=== PATIENT | female | born 1965 | race Caucasian/White ===

== ENCOUNTER → 2016-12-27 | Outpatient (CLI) | payer BC ==
[~2016-12-27] MED LIST: ACYC800T PO; ALBU8.5H3 INH; BACL10TA PO; BUPR75TA9 PO; CETI10CA PO; DOCU-144 PO; FLUN8.9H INH; FLUT16SP17 NASAL; GABA300C16 PO; MELO-110 PO; MONT10TA21 PO; SERT-165 PO; SYN15 PO; TRAM-40 PO
--- NOTE | 2016-12-28 10:26 | RADRPT ---
Echocardiogram Report Patient Name: JHON MAGAÑA Gender: Female Date: 1965 Study Date: 27-Dec-2016 Contact Worker Lithography: [facility] [place] Location: EKG Ref. Physician: ANGELA PERDUE Quality: Adequate Procedures: Transthoracic echocardiogram with complete 2D, M-Mode, and doppler examination. Indications: Evaluate Left Ventricular function. 2D/M Mode Doppler Measurement Value Normal Ranges Measurement Value Normal Ranges LVIDd 2D 5.0 3.5 - 5.6 cm AV Peak Eddie 1.5 m/sec LVIDs 2D 3.5 2.1 - 4.1 cm AV Peak PG 9.3 mmHg LVPWd 2D 1.0 0.6 - 1.1 cm LVOT Peak Eddie 1.0 m/sec IVSd 2D 0.9 0.6 - 1.1 cm LVOT Peak PG 4.0 mmHg AoR Diam 2D 2.9 2.0 - 3.7 cm MV E Peak Eddie 0.7 m/sec EDV 2D 115.6 cm3 MV A Peak Eddie 0.8 m/sec ESV 2D 43.0 cm3 MV E/A 0.9 LA Dimen 2D 3.9 2.3 - 4.0 cm MV Decel Time 164 msec MV Decel [place] 4 MV E/A 0.9 Findings Left Ventricle: Normal left ventricular systolic function. Normal left ventricular cavity size. Normal left ventricular wall thickness. Ejection fraction is visually estimated at 60 %. Abnormal Diastolic Function. Right Ventricle: Normal right ventricular size. Normal right ventricular systolic function. Left Atrium: The left atrium is normal in size. Right Atrium: The right atrium is normal in size. Mitral Valve: Mitral valve leaflets appear mildly thickened. Trace mitral regurgitation. Aortic Valve: Normal appearance of the aortic valve. No significant aortic stenosis or insufficiency. Tricuspid Valve: Tricuspid valve not well visualized. There is trace tricuspid regurgitation. Pulmonic Valve: Pulmonic valve not well visualized. There is trace pulmonic regurgitation. Pericardium: Normal pericardium with no significant pericardial effusion. Aorta: Normal aortic root. IVC: Normal size and normal respiratory collapse consistent with normal right atrial pressure. Conclusions 1.Normal left ventricular systolic function. Normal left ventricular cavity size. Normal left ventricular wall thickness. Ejection fraction is visually estimated at 60 %. Abnormal Diastolic Function. 2.Mitral valve leaflets appear mildly thickened. Trace mitral regurgitation. 3.Normal appearance of the aortic valve. No significant aortic stenosis or insufficiency. 4.Tricuspid valve not well visualized. There is trace tricuspid regurgitation. Electronically Signed By: Saul Valdovinos 28-Dec-2016 10:26:10 -0700 Patient Name: JHON MAGAÑA Study Date: 27-Dec-2016 [id number]
== END | disposition home or self-care (01) ==
LOC: EKG 13:00
PROVIDERS: ATTEND Case Manager/Care Coordinator
DX: C50.919 Malignant neoplasm of unspecified site of unspecified female breast (principal)
CPT/HCPCS: 93306

== ENCOUNTER 2017-01-02 07:39 | Day surgery (SDC) | payer BC ==
[2017-01-02] VITALS (18 sets, daily range): BP systolic 109–164; BP diastolic 57–84; PULSE 49–67; RESP 16–19; Ht 170.2 cm; Wt 118.3 kg
[~2017-01-02] VITALS: Ht 170.2 cm; Wt 118.3 kg
[2017-01-02] MEDS ORDERED: CEFAZOLIN 1 GM/50 ML (PMX) 50 ML IVPB ONE (08:30)
[2017-01-02] MEDS ORDERED: POLYMYXIN/BACITRACIN 1L IRRIG IRR ONE (08:30)
[2017-01-02] MEDS ORDERED: SOD CHLORIDE 0.9% 1,000 ML IV SCH (08:30)
[2017-01-02] MEDS ORDERED: BACL10TA PO (08:56)
[2017-01-02] MEDS ORDERED: MELO-110 PO (08:57)
[2017-01-02] MEDS ORDERED: BUPR75TA9 PO (08:57)
[2017-01-02] MEDS ORDERED: GABA300C16 PO (08:58)
[2017-01-02] MEDS ORDERED: TRAM-40 PO (08:58)
[2017-01-02] MEDS ORDERED: FLUN8.9H INH (08:59)
[2017-01-02] MEDS ORDERED: SERT-165 PO (08:59)
[2017-01-02] MEDS ORDERED: FLUT16SP17 NASAL (09:00)
[2017-01-02] MEDS ORDERED: ACYC800T PO (09:00)
[2017-01-02] MEDS ORDERED: SYN15 PO (09:00)
[2017-01-02] MEDS ORDERED: ALBU8.5H3 INH (09:01)
[2017-01-02] MEDS ORDERED: CETI10CA PO (09:01)
[2017-01-02] MEDS ORDERED: MONT10TA21 PO (09:01)
[2017-01-02] MEDS ORDERED: DOCU-144 PO (09:02)
[2017-01-02] MEDS ORDERED: MIDAZOLAM 1 MG/ML 2 ML INJ ONE (09:22)
[2017-01-02] MEDS ORDERED: FENTAnyl 50 MCG/ML VIAL ONE (09:22)
[2017-01-02] MEDS ORDERED: LIDOCAINE 2%/EPI 30 ML INJ ONE (09:22)
[2017-01-02] MEDS ORDERED: HEPARIN 1000 UNITS/ML 10 ML INJ ONE (09:23)
[2017-01-02] MEDS ORDERED: SOD CHLORIDE 0.9% 500 ML ONE (09:23)
--- NOTE | 2017-01-02 10:52 | RADRPT ---
PROCEDURE: Ultrasound guidance for placement of needle in right internal jugular vein. CLINICAL INDICATION: Venous access. TECHNIQUE: Prior to the procedure, informed consent was obtained. Risks including bleeding, infection, and pneu mothorax were explained to the patient. The patient understood and was willing to proceed. A procedu ral pause was performed. The patient's name, date of , and procedure to be performed were verif ied. The central line was inserted with all elements of maximal sterile barrier technique. All of th e following were used: head covering, facial mask, sterile gown, sterile gloves, a large sterile she et, hand hygiene, and 2% chlorhexidine for cutaneous antisepsis. The right neck and anterior/super ior chest wall was prepped and draped in usual sterile fashion. Limited sonography of the right neck was then performed. Noted is a patent right internal jugular ve in. Ultrasound images were recorded and stored in the patient's medical record. Following the local injection of Xylocaine, the right internal jugular vein was punctured under sono graphic guidance with a 20-gauge needle through which a 0.018 inch floppy tip guidewire was advanced into the superior vena cava. The patient tolerated the procedure well. The remainder of the proce dure was performed and dictated under separate cover. COMPARISON: None. FINDINGS: The ultrasound images demonstrate a patent right internal jugular vein. The subsequent images demon strate the needle entering the right internal jugular vein. IMPRESSION: 1. Ultrasound guidance for a needle placement in right internal jugular vein. RPTAT: QQ .Micky Calvillo MD, Date Time Electronically viewed and signed by .Micky Calvillo MD, MD on 01/02/2017 10:52 .R/
--- NOTE | 2017-01-02 10:54 | RADRPT ---
PROCEDURE: FLUOROSCOPIC AND ULTRASONOGRAPHIC-GUIDED PLACEMENT OF RIGHT CHEST PORT. CLINICAL INDICATION: History of left breast cancer. Venous access for chemotherapy. TECHNIQUE: INTRAPROCEDURE MEDICATIONS: PB antibiotic solution 40 cc applied topically. 1 gram Ancef intravenous ly, intra-op. IV Versed and Fentanyl per protocol. Informed consent was obtained. The procedure, risks, benefits, complications and alternatives were explained to the patient. Risks including bleeding, infection, and pneumothorax were explained. The patient understood and was willing to proceed. A procedural pause was performed. The patient's name, date of , and procedure to be performed w ere verified. The central line was inserted with all elements of maximal sterile barrier technique. All of the fol lowing were used: head covering, facial mask, sterile gown, sterile gloves, a large sterile sheet, h and hygiene, and 2% chlorhexidine for cutaneous antisepsis. The right neck and anterior/superior chest wall were prepped and draped in usual sterile fashion. Limited sonography of the right neck was then performed. Noted is a patent right internal jugular ve in. Following the local injection of 1% lidocaine, the right internal jugular vein was punctured under s onographic guidance with a 20-gauge needle through which a 0.018 inch floppy tip guidewire was advan bijan into the superior vena cava with fluoroscopic guidance. The tract was dilated to 5 Georgian and the wire was then replaced with a 0.035 in Amplatz guidewire. Serial dilatation was then performed and a 8 Georgian peel away sheath was introduced. A site just inferior to the clavicle in the superior anterior right chest wall was localized. One pe rcent lidocaine was used as local anesthesia. A transverse 2.5 cm incision was made utilizing a 15 b lade scalpel. Utilizing blunt dissection a subcutaneous pocket was created inferior to the incision. The cavity was flushed with approximately 40 cc of PB antibiotic solution. The catheter was tunneled underneath the skin from the newly created pocket to the puncture site in the neck. The central line catheter was pulled through the tract. The catheter was then advanced thr ough the sheath until the tip was positioned in the right atrium. The peel-away sheath was removed. The catheter was flushed and clamped. The 8 Georgian catheter was then connected to the Angiodynamics power port. The port was then placed i nto the pocket. Prior to closing the instrument and sponge count was verified and was correct. The s ubcutaneous tissue was closed with 3-0 Vicryl interrupted suture. The skin at the site of the pocket and in the neck was closed with 4-0 Vicryl suture in a running subcuticular technique. The port was flushed with 2000 units of heparin in 2 ml utilizing a Salazar needle. The needle was removed. A dres sing was applied. The patient tolerated procedure well. COMPARISON: None. FINDINGS: Ultrasound images were recorded and stored in the patient's medical record. Final radiographic images demonstrate the tip of the catheter in the upper right atrium. A total of 0.2 minutes of fluoroscopy time was used. The ultrasound images demonstrate the needle entering th e internal jugular vein. IMPRESSION: 1. Successful ultrasonographic and fluoroscopic guided placement of right chest power port. RPTAT: QQ .Micky Calvillo MD, Date Time Electronically viewed and signed by .Micky Calvillo MD, on 01/02/2017 10:53 .R/
[2017-01-02] MEDS ORDERED: HYDROCODONE/APAP (5/325) TAB PO PRN (11:00)
== END 2017-01-02 12:48 | disposition home or self-care (01) ==
LOC: SDS 07:39
PROVIDERS: ATTEND Internal Medicine Hematology & Oncology
DX: C50.912 Malignant neoplasm of unspecified site of left female breast (principal)
CPT/HCPCS: 36561; 76942; C1788; J1644; J2250; J3010; J7040; Z7610

== ENCOUNTER 2017-02-16 14:35 | Inpatient (IN) | payer BC ==
[~2017-02-16] VITALS: Ht 170.2 cm; Wt 119.9 kg
[2017-02-16] MEDS ORDERED: SODIUM CHLORIDE 0.9% 1L BAG IV* STA (14:59)
[2017-02-16] MEDS ORDERED: VANCOMYCIN 1 GM (PMX) 250 ML IVPB ONE (15:00)
[2017-02-16] MEDS: CEFEPIME 2GM/50 ML (PMX) 50 ML IVPB STA ×2 (15:19→15:35)
--- NOTE | 2017-02-16 15:20 | ERA ---
ER Documentation Chief Complaint Date/Time DATE: 02/16/17 TIME: 15:17 Chief Complaint PT HERE WITH REDNESS ON RIGHT SUBCLAVIAN PORT-A-CATH, SENT PER PMD HPI Extremely pleasant 51-year-old female history of breast cancer on chemotherapy with recent neutropenia Neupogen who presents for an infected Port-A-Cath to the right chest. She has been given Keflex as an outpatient with only mild improvement. Her surgeon Dr. Olivarez, sent the patient to the emergency room for inpatient hospitalization and IV antibiotics. She does describes a moderate pain is worse with movement, subjective fevers. No shortness of breath. She is does note erythema warmth and induration to the chest overlying the Port-A-Cath. ROS All systems reviewed and are negative except as per history of present illness. Medications Home Meds Reported Medications Docusate Sodium* (Colace*) 100 Mg Capsule, 50 MG PO BID, #60 CAP 01/02/17 Montelukast Sodium* (Singulair*) 10 Mg Tablet, 10 MG PO QHS, #30 TAB 01/02/17 Cetirizine Hcl* (Zyrtec*) 10 Mg Capsule, 10 MG PO DAILY, TAB 01/02/17 Albuterol Sulfate* (Proair HFA*) 8.5 Gm Hfa.aer.ad, 2 PUFF INH Q4H Y for WHEEZING AND SOB, #1 INHALER 01/02/17 Acyclovir* (Acyclovir*) 800 Mg Tablet, 800 MG PO DAILY, TAB 01/02/17 Levothyroxine Sodium* (Synthroid*) 150 Mcg Tablet, 150 MCG PO BEFORE BREAKFAST, #30 TAB 01/02/17 Fluticasone Propionate* (Fluticasone Propionate* Nasal) 50 Mcg/Carroll - 16 Gm Carroll.susp, 1 SPRAY NASAL DAILY, #1 BOTTLE TO EACH NOSTRIL 01/02/17 Sertraline Hcl* (Sertraline Hcl*) 100 Mg Tablet, 100 MG PO DAILY, #30 TAB 01/02/17 Flunisolide (Aerospan) 8.9 Gm Hfa.aer.ad, 2 PUFFS INH BID, #1 EA 01/02/17 Tramadol Hcl* (Ultram*) 50 Mg Tablet, 50 MG PO DAILY, TAB 01/02/17 Gabapentin* (Gabapentin*) 300 Mg Capsule, 300 MG PO TID, #90 CAP 01/02/17 Meloxicam* (Mobic*) 15 Mg Tablet, 15 MG PO DAILY, #30 TAB 01/02/17 Bupropion Hcl (Wellbutrin) 75 Mg Tablet, 75 MG PO BID, TAB 01/02/17 Baclofen* (Baclofen*) 10 Mg Tablet, 10 MG PO DAILY, TAB 01/02/17 Allergies Allergies: Coded Allergies: Sulfa (Sulfonamide Antibiotics) (Unverified Allergy, Unknown, 01/02/17) PMhx/Soc History of Surgery: Yes (DENTAL WORKS, LESI, BACK SX) Anesthesia Reaction: No Hx Neurological Disorder: No Hx Respiratory Disorders: Yes (ASTHMA) Hx Cardiac Disorders: No Hx Psychiatric Problems: No Hx Miscellaneous Medical Probl: No Hx Alcohol Use: Yes (SOCIALLY) Hx Substance Use: No Hx Tobacco Use: No Smoking Status: Never smoker FmHx Family History: No diabetes Physical Exam Vitals Vital Signs Date Time Temp Pulse Resp B/P Pulse Ox O2 Delivery O2 Flow Rate FiO2 02/16/17 16:53 64 17 115/70 97 Nasal Cannula 2.0 02/16/17 15:41 Nasal Cannula 2 02/16/17 15:23 66 13 115/77 95 Room Air 02/16/17 14:37 97.5 80 17 131/77 96 Physical Exam General: Well developed, well nourished, no acute distress Head: Normocephalic, atraumatic. Eyes: Pupils equally reactive, EOM intact ENT: Moist mucous membranes Neck: Supple, no lymphadenopathy Respiratory: Lungs clear bilaterally, no distress Cardiovascular: RRR, no murmurs, rubs, or gallops Abdominal: Soft, non-tender, non-distended, no peritoneal signs : Deferred MSK: No edema, no unilateral swelling, 5/5 strength Neurologic: Alert and oriented, moving all extremities, normal speech, no focal weakness, no cerebellar signs Skin: Erythema, warmth, tenderness, induration overlying the right chest overlying the Port-A-Cath Psych: Normal mood Result Diagram: 02/16/17 1516 02/16/17 1516 Results 24 hrs Laboratory Tests Test 02/16/17 15:16 White Blood Count 5.610^3/ul Red Blood Count 3.4510^6/ul Hemoglobin 11.8g/dl Hematocrit 34.4% Mean Corpuscular Volume 99.7fl Mean Corpuscular Hemoglobin 34.2pg Mean Corpuscular Hemoglobin Concent 34.3g/dl Red Cell Distribution Width 12.2% Platelet Count 74933^3/UL Mean Platelet Volume 10.5fl Neutrophils % 53.0% Lymphocytes % 39.0% Monocytes % 6.5% Eosinophils % 0.4% Basophils % 0.4% Nucleated Red Blood Cells % 0.0/100WBC Neutrophils # 3.010^3/ul Lymphocytes # 2.210^3/ul Monocytes # 0.410^3/ul Eosinophils # 0.010^3/ul Basophils # 0.010^3/ul Nucleated Red Blood Cells # 0.010^3/ul Prothrombin Time 11.9Sec Prothrombin Time Ratio 0.9 INR International Normalized Ratio 0.88 Activated Partial Thromboplast Time 29.3Sec Sodium Level 145mmol/L Potassium Level 3.8mmol/L Chloride Level 102mmol/L Carbon Dioxide Level 22mmol/L Anion Gap 25 Blood Urea Nitrogen 12mg/dl Creatinine 0.84mg/dl Glucose Level 109mg/dl Lactic Acid Level 1.5mmol/L Calcium Level 9.7mg/dl Total Bilirubin 0.0mg/dl Direct Bilirubin 0.00mg/dl Indirect Bilirubin 0.0mg/dl Aspartate Amino Transf (AST/SGOT) 26IU/L Alanine Aminotransferase (ALT/SGPT) 36IU/L Alkaline Phosphatase 103IU/L Total Protein 8.1g/dl Albumin 4.8g/dl Globulin 3.30g/dl Albumin/Globulin Ratio 1.45 Current Medications Medications (Trade) Dose Ordered Sig/Akua Route PRN Reason Start Time Stop Time Status Last Admin Dose Admin Sodium Chloride 3670 ml 3,670 ml BOLUS OVER 2 HOURS STAT IV* 02/16/17 14:59 02/16/17 15:02 DC 02/16/17 15:16 Cefepime HCl 50 ml @ 100 mls/hr ONCE STAT IVPB 02/16/17 14:59 02/16/17 15:28 DC 02/16/17 15:35 Vancomycin HCl (Vancocin) 250 ml @ 125 mls/hr ONCE ONCE IVPB 02/16/17 15:00 02/16/17 16:59 DC 02/16/17 16:05 Hydromorphone HCl (Dilaudid) 0.5 mg ONCE STAT IV 02/16/17 15:34 02/16/17 15:35 DC 02/16/17 15:50 Ondansetron HCl (Zofran Inj) 4 mg ONCE STAT IV 02/16/17 15:34 02/16/17 15:35 DC 02/16/17 15:50 Ondansetron HCl (Zofran Inj) 4 mg BRIDGE ORDER PRN IV NAUSEA AND/OR VOMITING 02/16/17 17:30 02/17/17 17:29 Acetaminophen (Tylenol Tab) 650 mg ER BRIDGE PRN PO MILD PAIN/FEVER 02/16/17 17:30 02/17/17 17:29 Procedures/MDM EKG, MONITORS, & DIAGNOSTIC IMAGING: EKG: I reviewed and interpreted a 12-lead EKG. Rhythm: Normal sinus rhythm Ectopy: None Intervals: No abnormalities ST segments: No elevations or depressions T waves: No contiguous inversions Chest x-ray: I reviewed and interpreted a 1 view of the chest Mediastinum: No enlargement Cardiac silhouette: No cardiomegaly Airspace: Clear lung tracey bilaterally without evidence of pneumothorax Bones: No evidence of fracture LAB INTERPRETATION: No leukocytosis, normal lactic acid MEDICAL DECISION MAKING: The patient presents to the emergency room with a clearly infected right chest Port-A-Cath. The patient is feeling outpatient antibiotics and had recent neutropenia. Therefore, the patient will benefit from sepsis screening, treatment, broad-spectrum antibiotics and inpatient hospitalization for likely revision of Port-A-Cath. Blood cultures been taken, the patient was given a 30 cc/kg bolus of saline and broad-spectrum antibiotics in the form of vancomycin and cefepime provided. I will recheck out to Dr. Monk, the surgeon referring the patient. ER COURSE: No evidence of sepsis. Patient continues to be resting comfortably. Pain medicine provided. Awaiting bed. Dr. Olivarez paged no callback at this time. I kept the patient and/or family informed of laboratory and diagnostic imaging results throughout the emergency room course. DISPOSITION PLAN: Medical surgical admission for management of infected Port-A-Cath CONSULTATION: Accepting care team and consultations: I discussed the current laboratory data, diagnostic imaging and emergency care provided. Admitting team: Dr. Soler Admitting team indication: Insurance directed Departure Diagnosis: Primary Impression: Infection due to port-a-cath Qualified Code: T80.219A - Infection due to port-a-cath, initial encounter Additional Impression: Local infection due to port-a-cath Qualified Code: T80.212A - Local infection due to port-a-cath, initial encounter Condition: NEWTON Mederos MD Feb 16, 2017 15:20
[2017-02-16 15:29] LABS: BASOPHILS % 0.4 % (0.0-2.0); EOSINOPHILS % 0.4 % (0.0-7.0); HEMATOCRIT 34.4 % (37.0-47.0); HEMOGLOBIN 11.8 g/dl (12.0-16.0); LYMPHOCYTES # 2.2 10^3/ul (0.8-2.9); MEAN CORPUSCULAR HEMOGLOBIN 34.2 pg (29.0-33.0); MEAN CORPUSCULAR HGB CONC 34.3 g/dl (32.0-37.0); MEAN CORPUSCULAR VOLUME 99.7 fl (82.0-101.0); MEAN PLATELET VOLUME 10.5 fl (7.4-10.4); MONOCYTE # 0.4 10^3/ul (0.3-0.9); MONOCYTES % 6.5 % (0.0-11.0); PLATELET COUNT 218 10^3/UL (140-415); RED BLOOD COUNT 3.45 10^6/ul (4.20-5.40); RED CELL DISTRIBUTION WIDTH 12.2 % (11.5-14.5); WHITE BLOOD COUNT 5.6 10^3/ul (4.8-10.8)
--- NOTE | 2017-02-16 15:33 | RADRPT ---
PROCEDURE: Chest Radiograph. CLINICAL INDICATION: Sepsis TECHNIQUE: Single frontal chest radiograph. COMPARISON: None available FINDINGS: The heart is magnified. A right chest wall port infusion catheter is in place. The cardiomediastin al silhouette is otherwise within normal limits. There is mild elevation right hemidiaphragm. No in filtrate or effusion is seen. The bones are intact. IMPRESSION: 1. No evidence of acute cardiopulmonary disease. RPTAT: KK .Camilo Fonseca MD, MD Date Time Electronically viewed and signed by .Camilo Fonseca MD, on 02/16/2017 15:32 .B/
[2017-02-16] MEDS ORDERED: ONDANSETRON 4 MG INJ IV STA (15:34)
[2017-02-16] MEDS ORDERED: HYDROmorphONE 1 MG/ML SYG IV STA (15:34)
[2017-02-16 15:41] LABS: ADD SCAN DIFF NO
[2017-02-16 15:47] LABS: INR 0.88; PROTIME 11.9 Sec (12.2-14.2); PT RATIO 0.9
[2017-02-16 15:48] LABS: ALBUMIN 4.8 g/dl (3.3-4.9); ALBUMIN/GLOBULIN RATIO 1.45; CALCIUM 9.7 mg/dl (8.4-10.2); CREATININE 0.84 mg/dl (0.44-1.00); PARTIAL THROMBOPLASTIN TIME 29.3 Sec (25.0-35.0); POTASSIUM 3.8 mmol/L (3.5-5.1); TOTAL PROTEIN 8.1 g/dl (6.1-8.1)
[2017-02-16] MEDS ORDERED: ACETAMINOPHEN 325 MG TAB PO PRN ×2 (17:30→18:00)
[2017-02-16] MEDS ORDERED: ONDANSETRON 4 MG INJ IV PRN (17:30)
--- NOTE | 2017-02-16 17:42 | HP ---
Date/Time of Note Date/Time of Note DATE: 02/16/17 TIME: 17:34 Assessment/Plan VTE Prophylaxis VTE Prophylaxis Intervention: LMWH Assessment/Plan Assessment/Plan 51 yo F with 1. Infected Port-a Cath 2. L breast ca 3. Asthma 4. Chronic UTI 5. Chronic back pain 6. Hypothyroidism 7. Left breast cancer PLAN: Empiric abx / removal of portacath and cultures if ok with surgery Supportive care , pain control, home meds Further evaluation and treatment will be based on clinical course Full discussion with care team done. All questions Answered Please also see orders. HPI/ROS Admit Date/Time Admit Date/Time 01/27/17 Hx of Present Illness PRESENTING COMPLAINT: R sided chest pain HISTORY OF PRESENTING COMPLAINT: This is a 51-year-old female history of breast cancer on chemotherapy with recent neutropenia Neupogen who presents for an infected Port-A-Cath to the right chest. She has been given Keflex as an outpatient with only mild improvement. Her surgeon Dr. Olivarez, sent the patient to the emergency room for inpatient hospitalization and IV antibiotics. She does describes a moderate pain is worse with movement, subjective fevers. No shortness of breath. She is does note erythema warmth and induration to the chest overlying the Port-A-Cath. ROS 12 point review if systems was done and pertinent findings are as noted. PMH/Family/Social Past Medical History * Asthma * Chronic UTI * Chronic back pain * Hypothyroidism * Left breast cancer Past Surgical History * back surgery * dental work Family History Significant Family History: no pertinent family hx Social History Smoking Status: Never smoker Exam/Review of Systems Vital Signs Vitals VS - Last 72 Hours, by Label Date Time Temp Pulse Resp B/P Pulse Ox O2 Delivery O2 Flow Rate FiO2 02/16/17 16:53 64 17 115/70 97 Nasal Cannula 2.0 02/16/17 15:41 Nasal Cannula 2 02/16/17 15:23 66 13 115/77 95 Room Air 02/16/17 14:37 97.5 80 17 131/77 96 Vital Signs Date Time Temp Pulse Resp B/P Pulse Ox O2 Delivery O2 Flow Rate FiO2 02/16/17 16:53 64 17 115/70 97 Nasal Cannula 2.0 02/16/17 14:37 97.5 Exam Exam Constitutional: alert, oriented Head: atraumatic, normocephalic Neck: non-tender, supple Chest: Erythema, warmth, tenderness, induration overlying the right chest overlying the Port-A-Cath Respiratory: clear to auscultation Cardiovascular: regular rate and rhythm Gastrointestinal: nl liver, spleen, non-tender, soft Extremities: normal pulses Labs Result Diagram: 02/16/17 1516 02/16/17 1516 Procedures Procedures Laboratory Tests Test 02/16/17 15:16 02/16/17 17:00 White Blood Count 5.610^3/ul Red Blood Count 3.4510^6/ul Hemoglobin 11.8g/dl Hematocrit 34.4% Mean Corpuscular Volume 99.7fl Mean Corpuscular Hemoglobin 34.2pg Mean Corpuscular Hemoglobin Concent 34.3g/dl Red Cell Distribution Width 12.2% Platelet Count 32226^3/UL Mean Platelet Volume 10.5fl Neutrophils % 53.0% Lymphocytes % 39.0% Monocytes % 6.5% Eosinophils % 0.4% Basophils % 0.4% Nucleated Red Blood Cells % 0.0/100WBC Neutrophils # 3.010^3/ul Lymphocytes # 2.210^3/ul Monocytes # 0.410^3/ul Eosinophils # 0.010^3/ul Basophils # 0.010^3/ul Nucleated Red Blood Cells # 0.010^3/ul Prothrombin Time 11.9Sec Prothrombin Time Ratio 0.9 INR International Normalized Ratio 0.88 Activated Partial Thromboplast Time 29.3Sec Sodium Level 145mmol/L Potassium Level 3.8mmol/L Chloride Level 102mmol/L Carbon Dioxide Level 22mmol/L Anion Gap 25 Blood Urea Nitrogen 12mg/dl Creatinine 0.84mg/dl Glucose Level 109mg/dl Lactic Acid Level 1.5mmol/L 0.8mmol/L Calcium Level 9.7mg/dl Total Bilirubin 0.0mg/dl Direct Bilirubin 0.00mg/dl Indirect Bilirubin 0.0mg/dl Aspartate Amino Transf (AST/SGOT) 26IU/L Alanine Aminotransferase (ALT/SGPT) 36IU/L Alkaline Phosphatase 103IU/L Total Protein 8.1g/dl Albumin 4.8g/dl Globulin 3.30g/dl Albumin/Globulin Ratio 1.45 ER INTERVENTIONS Medications (Trade) Dose Ordered Sig/Akua Route PRN Reason Start Time Stop Time Status Last Admin Dose Admin Sodium Chloride 3670 ml 3,670 ml BOLUS OVER 2 HOURS STAT IV* 02/16/17 14:59 02/16/17 15:02 DC 02/16/17 15:16 3,670 ML Cefepime HCl 50 ml @ 100 mls/hr ONCE STAT IVPB 02/16/17 14:59 02/16/17 15:28 DC 02/16/17 15:35 100 MLS/HR Vancomycin HCl (Vancocin) 250 ml @ 125 mls/hr ONCE ONCE IVPB 02/16/17 15:00 02/16/17 16:59 DC 02/16/17 16:05 125 MLS/HR Hydromorphone HCl (Dilaudid) 0.5 mg ONCE STAT IV 02/16/17 15:34 02/16/17 15:35 DC 02/16/17 15:50 0.5 MG Ondansetron HCl (Zofran Inj) 4 mg ONCE STAT IV 02/16/17 15:34 02/16/17 15:35 DC 02/16/17 15:50 4 MG Ondansetron HCl (Zofran Inj) 4 mg BRIDGE ORDER PRN IV NAUSEA AND/OR VOMITING 02/16/17 17:30 02/17/17 17:29 Acetaminophen (Tylenol Tab) 650 mg ER BRIDGE PRN PO MILD PAIN/FEVER 02/16/17 17:30 02/17/17 17:29 PROCEDURE: Chest Radiograph. CLINICAL INDICATION: Sepsis TECHNIQUE: Single frontal chest radiograph. COMPARISON: None available FINDINGS: The heart is magnified. A right chest wall port infusion catheter is in place. The cardiomediastinal silhouette is otherwise within normal limits. There is mild elevation right hemidiaphragm. No infiltrate or effusion is seen. The bones are intact. IMPRESSION: 1. No evidence of acute cardiopulmonary disease. RPTAT: KK .Camilo Fonseca MD, Date Time Electronically viewed and signed by .Camilo Fonseca MD, on 2016 15:32 .B/ CC: NEWTON HANNAH MD ABE, BOLATITO M. Feb 16, 2017 17:42
[2017-02-16] MEDS ORDERED: MELOXICAM 15 MG TAB PO PRN (18:00)
[2017-02-16] MEDS ORDERED: VANCOMYCIN IV PER PHARMACY XX SCH (18:00)
[2017-02-16] MEDS ORDERED: ALBUTEROL 18 GM INHALER INH PRN (18:00)
[2017-02-16 18:30] VITALS: BP 132/83; RESP 16
[2017-02-16 18:56] VITALS: Ht 170.2 cm; Wt 119.9 kg
--- NOTE | 2017-02-16 19:32 | RADRPT ---
PROCEDURE: US Lower extremity Venous. CLINICAL INDICATION: Rule out DVT TECHNIQUE: Multiple sonographic images of the bilateral lower extremity deep venous system was obt ained utilizing grayscale, color-flow, compressive sonography and doppler imaging with augmentation. The images were reviewed on a PACS workstation. COMPARISON: None. FINDINGS: There is normal compressibility and flow within the bilateral common femoral, deep femoral, superfic ial femoral and popliteal veins. The deep veins the calf were incompletely visualized. IMPRESSION: No sonographic evidence for deep venous thrombosis in the bilateral lower extremities. Physician Brian Date Time Electronically viewed and signed by Physician Brian on 02/16/2017 19:32 ML/
[2017-02-16 19:42] VITALS: BP 136/78; RESP 20
[2017-02-16] MEDS: CEFTRIAXONE 1 GM/50 ML (PMX) 50 ML IVPB SCH (20:49)
[2017-02-16] MEDS: DOCUSATE SODIUM 100 MG CAP PO SCH (20:51)
[2017-02-16] MEDS: GABAPENTIN 300 MG CAP PO SCH (20:51)
[2017-02-16] MEDS: MONTELUKAST 10 MG TAB PO SCH (20:51)
[2017-02-16] MEDS: VANCOMYCIN 1.5 GM in SOD CHLORIDE 0.9% 250 ML IVPB SCH (21:15)
[2017-02-16] MEDS: BUPROPION 75 MG TAB PO SCH (22:09)
[2017-02-16] MEDS: ONDANSETRON 4 MG INJ IV PRN (22:54)
[2017-02-17 04:10] VITALS: BP 126/71; PULSE 62; RESP 19
[2017-02-17] MEDS ORDERED: METOCLOPRAMIDE 10 MG INJ IV ONE (04:12)
[2017-02-17] MEDS: PANTOPRAZOLE (EC) 40 MG TAB PO SCH (05:48)
[2017-02-17] MEDS: LEVOTHYROXINE 150 MCG TAB PO SCH (07:00)
[2017-02-17 08:10] VITALS: BP 142/62; RESP 22
[2017-02-17] MEDS: SERTRALINE 100 MG TAB PO SCH ×2 (09:00→13:11)
[2017-02-17] MEDS: FLUTICASONE 0.05% 16 GM NAS SPRAY NASAL SCH (09:00)
[2017-02-17] MEDS: ENOXAPARIN 40 MG/0.4 ML SYG SC SCH (09:00)
[2017-02-17] MEDS: ACYCLOVIR 800 MG TAB PO SCH (09:00)
[2017-02-17] MEDS: VANCOMYCIN 1.5 GM in SOD CHLORIDE 0.9% 250 ML IVPB SCH ×2 (09:00→21:39)
[2017-02-17] MEDS: BUPROPION 75 MG TAB PO SCH ×3 (09:00→20:19)
[2017-02-17] MEDS: GABAPENTIN 300 MG CAP PO SCH ×3 (09:00→20:19)
[2017-02-17] MEDS: DOCUSATE SODIUM 100 MG CAP PO SCH ×3 (09:00→20:19)
[2017-02-17 09:05] LABS: EOSINOPHILS % 0.3 % (0.0-7.0); HEMATOCRIT 30.1 % (37.0-47.0); HEMOGLOBIN 10.3 g/dl (12.0-16.0); LYMPHOCYTES # 1.6 10^3/ul (0.8-2.9); MEAN CORPUSCULAR HEMOGLOBIN 34.6 pg (29.0-33.0); MEAN CORPUSCULAR HGB CONC 34.2 g/dl (32.0-37.0); MONOCYTE # 0.3 10^3/ul (0.3-0.9); MONOCYTES % 5.3 % (0.0-11.0); NEUTROPHIL # 4.1 10^3/ul (1.6-7.5); NEUTROPHILS % 67.7 % (39.0-77.0); PLATELET COUNT 184 10^3/UL (140-415); RED BLOOD COUNT 2.98 10^6/ul (4.20-5.40); RED CELL DISTRIBUTION WIDTH 12.2 % (11.5-14.5); WHITE BLOOD COUNT 6.1 10^3/ul (4.8-10.8)
[2017-02-17 09:18] LABS: CALCIUM 8.7 mg/dl (8.4-10.2); CREATININE 0.8 mg/dl (0.44-1.00); MAGNESIUM 1.7 mg/dl (1.7-2.5); POTASSIUM 4.1 mmol/L (3.5-5.1)
--- NOTE | 2017-02-17 10:04 | PN ---
Date/Time of Note Date/Time of Note DATE: 02/17/17 TIME: 10:01 Assessment/Plan VTE Prophylaxis VTE Prophylaxis Intervention: LMWH Lines/Catheters IV Catheter Type (from Nrsg): Saline Lock Assessment/Plan Assessment/Plan 51 yo F with 1. Infected Port-a Cath 2. L breast ca 3. Asthma 4. Chronic UTI 5. Chronic back pain 6. Hypothyroidism 7. Left breast cancer PLAN: ID consult, radiology recommends aggressive treatment if infection is only superficial before taking out the cath. will defer to surgery and ID. Supportive care , pain control, home meds Further evaluation and treatment will be based on clinical course Full discussion with care team done. All questions Answered Please also see orders. Subjective 24 Hr Interval Summary Free Text/Dictation c/o vomiting overnight feels better now Exam/Review of Systems Vital Signs Vitals Vital Signs Date Time Temp Pulse Resp B/P Pulse Ox O2 Delivery O2 Flow Rate FiO2 02/17/17 08:10 98.8 60 22 142/62 95 02/17/17 04:10 Room Air 02/16/17 16:53 2.0 Intake and Output 02/16/17 02/16/17 02/17/17 15:00 23:00 07:00 Intake Total 50 ml 370 ml Balance 50 ml 370 ml Exam Constitutional: alert, oriented Head: atraumatic, normocephalic Neck: non-tender, supple Chest: Erythema, warmth, tenderness, induration overlying the right chest overlying the Port-A-Cath Respiratory: clear to auscultation Cardiovascular: regular rate and rhythm Gastrointestinal: nl liver, spleen, non-tender, soft Extremities: normal pulses Results Result Diagram: 02/17/1725 02/17/17 0825 Results 24 hrs Laboratory Tests Test 02/16/17 15:16 02/16/17 17:00 02/16/17 19:55 02/17/17 08:25 White Blood Count 5.6 6.1 Red Blood Count 3.45 L 2.98 L Hemoglobin 11.8 L 10.3 L Hematocrit 34.4 L 30.1 L Mean Corpuscular Volume 99.7 101.0 Mean Corpuscular Hemoglobin 34.2 H 34.6 H Mean Corpuscular Hemoglobin Concent 34.3 34.2 Red Cell Distribution Width 12.2 12.2 Platelet Count 218 184 Mean Platelet Volume 10.5 H 11.0 H Neutrophils % 53.0 67.7 Lymphocytes % 39.0 26.0 Monocytes % 6.5 5.3 Eosinophils % 0.4 0.3 Basophils % 0.4 0.0 Nucleated Red Blood Cells % 0.0 0.0 Neutrophils # 3.0 4.1 Lymphocytes # 2.2 1.6 Monocytes # 0.4 0.3 Eosinophils # 0.0 0.0 Basophils # 0.0 0.0 Nucleated Red Blood Cells # 0.0 0.0 Prothrombin Time 11.9 L Prothrombin Time Ratio 0.9 INR International Normalized Ratio 0.88 Activated Partial Thromboplast Time 29.3 Sodium Level 145 H 143 Potassium Level 3.8 4.1 Chloride Level 102 109 Carbon Dioxide Level 22 26 Anion Gap 25 H 12 # Blood Urea Nitrogen 12 10 Creatinine 0.84 0.80 Glucose Level 109 86 Lactic Acid Level 1.5 0.8 1.0 Calcium Level 9.7 8.7 Total Bilirubin 0.0 L Direct Bilirubin 0.00 Indirect Bilirubin 0.0 Aspartate Amino Transf (AST/SGOT) 26 Alanine Aminotransferase (ALT/SGPT) 36 Alkaline Phosphatase 103 Total Protein 8.1 Albumin 4.8 Globulin 3.30 H Albumin/Globulin Ratio 1.45 Magnesium Level 1.7 Medications Medications Current Medications Acyclovir (Zovirax) 800 mg DAILY PO ; Start 02/17/17 at 09:00 Albuterol (Ventolin Hfa) 2 puff Q4H PRN INH WHEEZING AND SOB; Start 02/16/17 at 18:00 Baclofen (Lioresal) 10 mg DAILY PO ; Start 02/17/17 at 09:00 Bupropion HCl (Wellbutrin) 75 mg BID PO Last administered on 02/16/17 22:09; Admin Dose 75 MG; Start 02/16/17 at 21:00 Docusate Sodium (Colace) 50 mg BID PO Last administered on 02/16/17 20:51; Admin Dose 50 MG; Start 02/16/17 at 21:00 Fluticasone Propionate (Flonase 0.05% Nasal) 1 spray DAILY NASAL ; Start at 09:00 Gabapentin (Neurontin) 300 mg TID PO Last administered on 02/16/17 20:51; Admin Dose 300 MG; Start 02/16/17 at 21:00 Meloxicam (Mobic) 15 mg DAILY PRN PO pain; Start 02/16/17 at 18:00 Montelukast Sodium (Singulair) 10 mg QHS PO Last administered on 02/16/17 20: 51; Admin Dose 10 MG; Start 02/16/17 at 21:00 Sertraline HCl (Zoloft) 100 mg DAILY PO ; Start 02/17/17 at 09:00 Tramadol HCl 50 mg 50 mg Q6H PRN PO pain; Start 02/16/17 at 18:00 Ceftriaxone Sodium (Rocephin) 50 ml @ 100 mls/hr Q24H IVPB Last administered on 02/16/17 20:49; Admin Dose 100 MLS/HR; Start 02/16/17 at 18:30 Enoxaparin Sodium (Lovenox) 40 mg DAILY SC ; Start 02/17/17 at 09:00 Acetaminophen/ Hydrocodone Bitart ([place] (5/325)) 1 tab Q6H PRN PO pain; Start 02/16/17 at 18:00 Ondansetron HCl (Zofran Inj) 4 mg Q6H PRN IV NAUSEA AND/OR VOMITING Last administered on 02/16/17 22:54; Admin Dose 4 MG; Start 02/16/17 at 18:00 Acetaminophen (Tylenol Tab) 650 mg Q6H PRN PO PAIN AND OR ELEVATED TEMP; Start 02/16/17 at 18:00 Pantoprazole 40 mg 40 mg DAILY@06 PO ; Start 02/17/17 at 06:00 Vancomycin HCl/ Sodium Chloride (Vancocin/NS) 250 ml @ 83.333 mls/ hr Q12H IVPB Last administered on 02/16/17 21:15; Admin Dose 83.333 MLS/HR; Start at 21:00 Metoclopramide HCl (Reglan) 10 mg Q6H PRN IV NAUSEA AND/OR VOMITING; Start 02/17 at 04:10 Procedures Procedures PROCEDURE: US Lower extremity Venous. CLINICAL INDICATION: Rule out DVT TECHNIQUE: Multiple sonographic images of the bilateral lower extremity deep venous system was obtained utilizing grayscale, color-flow, compressive sonography and doppler imaging with augmentation. The images were reviewed on a PACS workstation. COMPARISON: None. FINDINGS: There is normal compressibility and flow within the bilateral common femoral, deep femoral, superficial femoral and popliteal veins. The deep veins the calf were incompletely visualized. IMPRESSION: No sonographic evidence for deep venous thrombosis in the bilateral lower extremities. Dean Riley, Physician Date Time Electronically viewed and signed by Dean Riley, Physician on 02/16/2017 19 :32 ML/ CC: NEWTON HANNAH MD ABE, BOLATITO M. Feb 17, 2017 10:04
[2017-02-17] MEDS: BACLOFEN 10 MG TAB PO SCH ×2 (10:19→13:10)
[2017-02-17] MEDS: METOCLOPRAMIDE 10 MG INJ IV PRN ×2 (13:13→20:24)
[2017-02-17] MEDS: CEFTRIAXONE 1 GM/50 ML (PMX) 50 ML IVPB SCH (18:43)
[2017-02-17 19:40] VITALS: BP 152/85; RESP 20
[2017-02-17] MEDS: MONTELUKAST 10 MG TAB PO SCH (20:19)
[2017-02-17] MEDS: ONDANSETRON 4 MG INJ IV PRN (22:10)
--- NOTE | 2017-02-17 22:44 | CONS ---
Date/Time of Note Date/Time of Note DATE: 02/17/17 TIME: 22:30 Consultation Date/Type/Reason Admit Date/Time 01/27/17 Type of Consultation: Infectious disease Reason for Consultation Cellulitis right chest and infected Port-A-Cath Referring Provider: CRISTA WOODS Hx of Present Illness Patient is a 51-year-old white female who was admitted on 02/16/2017 for removal of an infected right Port-A-Cath. The patient has been receiving chemotherapy for carcinoma of the left breast with local metastases and recent neutropenia. He was initially noted to have pain and redness in the area of the right chest Port-A-Cath but no fever or chills. White count could not be accurately determined because of recent neutropenia. The patient has been currently admitted and on ceftriaxone and vancomycin. No cultures are positive at this time. There has been no drainage from the Port-A-Cath area. Past medical history: Carcinoma of the breast left Obesity Hyperlipidemia Hypertension Asthma Allergic rhinitis Hypothyroidism. Allergy sulfa. Operations L4-L5 fusion and insertion of Port-A -Cath and breast biopsy. Medications meloxicam, baclofen, gabapentin, sertraline, tramadol, levothyroxine , acyclovir, fluticasone nasal spray, Zyrtec, montelukast. Physical examination: Pleasant, fair skinned, obese, blind white female in no acute distress. Blood pressure 140/90 pulse 72 respirations 18 is afebrile pupils equal round react to light there is no scleral icterus the mouth has moist mucous membranes. Neck is supple no jugular venous distention there is a palpable inflamed Port-A- Cath in the lateral correction the mid pectoralis areas with overlying areas of erythema but no drainage. Chest is clear to auscultation heart is regular abdomen is obese and soft no palpable organs examination extremities reveal no edema cyanosis or clubbing. Neurologic examination is grossly within normal limits. Initial impression: Cellulitis right chest Port-A-Cath site Carcinoma of left breast Obesity Hypertension Asthma Allergic rhinitis Hypothyroidism . Recommendation: Continue present vancomycin and ceftriaxone pending culture results. MRSA test. I have seen this patient for Dr. Anatoly Hernandez MD Social History Smoking Status: Never smoker Exam/Review of Systems Vital Signs Vitals Vital Signs Date Time Temp Pulse Resp B/P Pulse Ox O2 Delivery O2 Flow Rate FiO2 02/17/17 19:40 98.9 61 20 152/85 98 02/17/17 04:10 Room Air 02/16/17 16:53 2.0 Intake and Output 02/16/17 02/16/17 02/17/17 15:00 23:00 07:00 Intake Total 50 ml 370 ml Balance 50 ml 370 ml Results Result Diagram: 02/17/17 0825 02/17/17 0825 Results 24 hrs Laboratory Tests Test 02/17/17 08:25 02/17/17 20:00 White Blood Count 6.1 Red Blood Count 2.98 L Hemoglobin 10.3 L Hematocrit 30.1 L Mean Corpuscular Volume 101.0 Mean Corpuscular Hemoglobin 34.6 H Mean Corpuscular Hemoglobin Concent 34.2 Red Cell Distribution Width 12.2 Platelet Count 184 Mean Platelet Volume 11.0 H Neutrophils % 67.7 Lymphocytes % 26.0 Monocytes % 5.3 Eosinophils % 0.3 Basophils % 0.0 Nucleated Red Blood Cells % 0.0 Neutrophils # 4.1 Lymphocytes # 1.6 Monocytes # 0.3 Eosinophils # 0.0 Basophils # 0.0 Nucleated Red Blood Cells # 0.0 Sodium Level 143 Potassium Level 4.1 Chloride Level 109 Carbon Dioxide Level 26 Anion Gap 12 # Blood Urea Nitrogen 10 Creatinine 0.80 Glucose Level 86 Calcium Level 8.7 Magnesium Level 1.7 Vancomycin Level Trough 15.5 Medications Medications Current Medications Acyclovir (Zovirax) 800 mg DAILY PO ; Start 02/17/17 at 09:00 Albuterol (Ventolin Hfa) 2 puff Q4H PRN INH WHEEZING AND SOB; Start 02/16/17 at 18:00 Baclofen (Lioresal) 10 mg DAILY PO Last administered on 02/17/17 13:10; Admin Dose 10 MG; Start 02/17/17 at 09:00 Bupropion HCl (Wellbutrin) 75 mg BID PO Last administered on 02/17/17 20:19; Admin Dose 75 MG; Start 02/16/17 at 21:00 Docusate Sodium (Colace) 50 mg BID PO Last administered on 02/17/17 20:19; Admin Dose 50 MG; Start 02/16/17 at 21:00 Fluticasone Propionate (Flonase 0.05% Nasal) 1 spray DAILY NASAL Last administered on 02/17/17 09:00; Admin Dose 1 SPRAY; Start 02/17/17 at 09:00 Gabapentin (Neurontin) 300 mg TID PO Last administered on 02/17/17 20:19; Admin Dose 300 MG; Start 02/16/17 at 21:00 Meloxicam (Mobic) 15 mg DAILY PRN PO pain; Start 02/16/17 at 18:00 Montelukast Sodium (Singulair) 10 mg QHS PO Last administered on 02/17/17 20:19 ; Admin Dose 10 MG; Start 02/16/17 at 21:00 Sertraline HCl (Zoloft) 100 mg DAILY PO Last administered on 02/17/17 13:11; Admin Dose 100 MG; Start 02/17/17 at 09:00 Tramadol HCl 50 mg 50 mg Q6H PRN PO pain; Start 02/16/17 at 18:00 Ceftriaxone Sodium (Rocephin) 50 ml @ 100 mls/hr Q24H IVPB Last administered on 02/17/17 18:43; Admin Dose 100 MLS/HR; Start 02/16/17 at 18:30 Enoxaparin Sodium (Lovenox) 40 mg DAILY SC ; Start 02/17/17 at 09:00 Acetaminophen/ Hydrocodone Bitart ([place] (5/325)) 1 tab Q6H PRN PO pain; Start 02/16/17 at 18:00 Ondansetron HCl (Zofran Inj) 4 mg Q6H PRN IV NAUSEA AND/OR VOMITING Last administered on 02/17/17 22:10; Admin Dose 4 MG; Start 02/16/17 at 18:00 Acetaminophen (Tylenol Tab) 650 mg Q6H PRN PO PAIN AND OR ELEVATED TEMP; Start 02/16/17 at 18:00 Pantoprazole 40 mg 40 mg DAILY@06 PO ; Start 02/17/17 at 06:00 Vancomycin HCl/ Sodium Chloride (Vancocin/NS) 250 ml @ 83.333 mls/ hr Q12H IVPB Last administered on 02/17/17 21:39; Admin Dose 83.333 MLS/HR; Start 02/16 at 21:00 Metoclopramide HCl (Reglan) 10 mg Q6H PRN IV NAUSEA AND/OR VOMITING Last administered on 7/1/17at 20:24; Admin Dose 10 MG; Start 02/17/17 at 04:10 Bari HERNANDEZ MD Feb 17, 2017 22:41
[2017-02-18] MEDS: PANTOPRAZOLE (EC) 40 MG TAB PO SCH (05:55)
[2017-02-18] MEDS: LEVOTHYROXINE 150 MCG TAB PO SCH (06:05)
[2017-02-18 08:08] VITALS: BP 134/65; RESP 18
[2017-02-18] MEDS: ACYCLOVIR 800 MG TAB PO SCH (08:54)
[2017-02-18] MEDS: BUPROPION 75 MG TAB PO SCH ×2 (08:55→21:06)
[2017-02-18] MEDS: DOCUSATE SODIUM 100 MG CAP PO SCH (08:55)
[2017-02-18] MEDS: GABAPENTIN 300 MG CAP PO SCH ×3 (08:55→21:06)
[2017-02-18] MEDS: SERTRALINE 100 MG TAB PO SCH (08:56)
[2017-02-18] MEDS: BACLOFEN 10 MG TAB PO SCH (08:56)
[2017-02-18] MEDS: ENOXAPARIN 40 MG/0.4 ML SYG SC SCH (08:59)
[2017-02-18] MEDS: FLUTICASONE 0.05% 16 GM NAS SPRAY NASAL SCH (09:00)
[2017-02-18] MEDS: VANCOMYCIN 1.25 GM in SOD CHLORIDE 0.9% 250 ML IVPB SCH ×2 (09:02→21:07)
[2017-02-18 09:08] LABS: BASOPHILS % 0.5 % (0.0-2.0); HEMATOCRIT 31.4 % (37.0-47.0); HEMOGLOBIN 10.2 g/dl (12.0-16.0); LYMPHOCYTES # 1.1 10^3/ul (0.8-2.9); LYMPHOCYTES % 28.9 % (15.0-51.0); MEAN CORPUSCULAR HGB CONC 32.5 g/dl (32.0-37.0); MEAN CORPUSCULAR VOLUME 101.6 fl (82.0-101.0); MEAN PLATELET VOLUME 11.3 fl (7.4-10.4); MONOCYTE # 0.3 10^3/ul (0.3-0.9); MONOCYTES % 8.8 % (0.0-11.0); NEUTROPHIL # 2.4 10^3/ul (1.6-7.5); NEUTROPHILS % 60.5 % (39.0-77.0); PLATELET COUNT 189 10^3/UL (140-415); RED BLOOD COUNT 3.09 10^6/ul (4.20-5.40); RED CELL DISTRIBUTION WIDTH 12.3 % (11.5-14.5); WHITE BLOOD COUNT 3.9 10^3/ul (4.8-10.8)
[2017-02-18 09:11] LABS: ADD SCAN DIFF NO
[2017-02-18 09:24] LABS: CALCIUM 8.7 mg/dl (8.4-10.2); CREATININE 0.79 mg/dl (0.44-1.00); POTASSIUM 4.2 mmol/L (3.5-5.1)
[2017-02-18] MEDS ORDERED: LIDOCAINE 1% (MDV) 20 ML INJ ONE ×3 (10:15→11:59)
--- NOTE | 2017-02-18 10:44 | PN ---
Date/Time of Note Date/Time of Note DATE: 02/18/17 TIME: 10:44 Assessment/Plan VTE Prophylaxis VTE Prophylaxis Intervention: LMWH Lines/Catheters IV Catheter Type (from Nrsg): Saline Lock Assessment/Plan Assessment/Plan 51 yo F with 1. Infected Port-a Cath 2. L breast ca on chemo, Dr Lara 3. Asthma 4. Chronic UTI 5. Chronic back pain 6. Hypothyroidism 7. Left breast cancer PLAN: Port removal today, continue abx, await cath tip cultures, Patient may need line holiday for a while . Supportive care , pain control, home meds Further evaluation and treatment will be based on clinical course Full discussion with care team done. All questions Answered Please also see orders. Subjective 24 Hr Interval Summary Free Text/Dictation no new issues, NPO for port removal today Exam/Review of Systems Vital Signs Vitals Vital Signs Date Time Temp Pulse Resp B/P Pulse Ox O2 Delivery O2 Flow Rate FiO2 02/18/17 08:08 98.8 62 18 134/65 99 02/17/17 04:10 Room Air 02/16/17 16:53 2.0 Intake and Output 02/17/17 02/17/17 02/18/17 15:00 23:00 07:00 Intake Total 1010 ml 850 ml Balance 1010 ml 850 ml Exam Constitutional: alert, oriented Head: atraumatic, normocephalic Neck: non-tender, supple Chest: Erythema, warmth, tenderness, induration overlying the right chest overlying the Port-A-Cath Respiratory: clear to auscultation Cardiovascular: regular rate and rhythm Gastrointestinal: nl liver, spleen, non-tender, soft Extremities: normal pulses Results Result Diagram: 02/18/17 0745 02/18/17 0745 Results 24 hrs Laboratory Tests Test 02/17/17 20:00 02/18/17 07:45 Vancomycin Level Trough 15.5 White Blood Count 3.9 #L Red Blood Count 3.09 L Hemoglobin 10.2 L Hematocrit 31.4 L Mean Corpuscular Volume 101.6 H Mean Corpuscular Hemoglobin 33.0 Mean Corpuscular Hemoglobin Concent 32.5 Red Cell Distribution Width 12.3 Platelet Count 189 Mean Platelet Volume 11.3 H Neutrophils % 60.5 Lymphocytes % 28.9 Monocytes % 8.8 Eosinophils % 1.0 Basophils % 0.5 Nucleated Red Blood Cells % 0.0 Neutrophils # 2.4 Lymphocytes # 1.1 Monocytes # 0.3 Eosinophils # 0.0 Basophils # 0.0 Nucleated Red Blood Cells # 0.0 Sodium Level 138 Potassium Level 4.2 Chloride Level 102 Carbon Dioxide Level 29 Anion Gap 11 Blood Urea Nitrogen 14 Creatinine 0.79 Glucose Level 108 Calcium Level 8.7 Medications Medications Current Medications Acyclovir (Zovirax) 800 mg DAILY PO Last administered on 02/18/17 08:54; Admin Dose 800 MG; Start 02/17/17 at 09:00 Albuterol (Ventolin Hfa) 2 puff Q4H PRN INH WHEEZING AND SOB; Start 02/16/17 at 18:00 Baclofen (Lioresal) 10 mg DAILY PO Last administered on 02/18/17 08:56; Admin Dose 10 MG; Start 02/17/17 at 09:00 Bupropion HCl (Wellbutrin) 75 mg BID PO Last administered on 02/18/17 08:55; Admin Dose 75 MG; Start 02/16/17 at 21:00 Docusate Sodium (Colace) 50 mg BID PO Last administered on 02/18/17 08:55; Admin Dose 50 MG; Start 02/16/17 at 21:00 Fluticasone Propionate (Flonase 0.05% Nasal) 1 spray DAILY NASAL Last administered on 02/17/17 09:00; Admin Dose 1 SPRAY; Start 02/17/17 at 09:00 Gabapentin (Neurontin) 300 mg TID PO Last administered on 02/18/17 08:55; Admin Dose 300 MG; Start 02/16/17 at 21:00 Meloxicam (Mobic) 15 mg DAILY PRN PO pain; Start 02/16/17 at 18:00 Montelukast Sodium (Singulair) 10 mg QHS PO Last administered on 02/17/17 20:19 ; Admin Dose 10 MG; Start 02/16/17 at 21:00 Sertraline HCl (Zoloft) 100 mg DAILY PO Last administered on 02/18/17 08:56; Admin Dose 100 MG; Start 02/17/17 at 09:00 Tramadol HCl 50 mg 50 mg Q6H PRN PO pain; Start 02/16/17 at 18:00 Ceftriaxone Sodium (Rocephin) 50 ml @ 100 mls/hr Q24H IVPB Last administered on 02/17/17 18:43; Admin Dose 100 MLS/HR; Start 02/16/17 at 18:30 Enoxaparin Sodium (Lovenox) 40 mg DAILY SC Last administered on 02/18/17 08:59 ; Admin Dose 40 MG; Start 02/17/17 at 09:00 Acetaminophen/ Hydrocodone Bitart ([place] (5/325)) 1 tab Q6H PRN PO pain; Start 02/16/17 at 18:00 Ondansetron HCl (Zofran Inj) 4 mg Q6H PRN IV NAUSEA AND/OR VOMITING Last administered on 02/17/17 22:10; Admin Dose 4 MG; Start 02/16/17 at 18:00 Acetaminophen (Tylenol Tab) 650 mg Q6H PRN PO PAIN AND OR ELEVATED TEMP; Start 02/16/17 at 18:00 Pantoprazole (Protonix Tab) 40 mg DAILY@06 PO Last administered on 02/18/17 05: 55; Admin Dose 40 MG; Start 02/17/17 at 06:00 Metoclopramide HCl 10 mg 10 mg Q6H PRN IV NAUSEA AND/OR VOMITING Last administered on 02/17/17 20:24; Admin Dose 10 MG; Start 02/17/17 at 04:10 Vancomycin HCl/ Sodium Chloride (Vancocin/NS) 250 ml @ 83.333 mls/ hr Q12H IVPB Last administered on 02/18/17 09:02; Admin Dose 83.333 MLS/HR; Start at 09:00 CRISTA WOODS Feb 18, 2017 10:44
[2017-02-18] MEDS ORDERED: IOHEXOL 300MG/ML 30 ML BTL ONE (11:34)
[2017-02-18] MEDS: HYDROCODONE/APAP (5/325) TAB PO PRN ×2 (12:51→18:34)
--- NOTE | 2017-02-18 15:02 | RADRPT ---
PROCEDURE: Chest port removal CLINICAL INDICATION: Skin site infection surrounding a right sided chest port. Right chest pain. TECHNIQUE: The procedure, risks, complications and alternatives were explained. A signed, writte n, informed consent was obtained. A selected skin site over the patient's existing port was prepped and draped in the usual sterile fa shion. Approximately 20 cc of 1% lidocaine was used to anesthetize the skin surrounding the patient 's chest port. A 2 cm incision in the skin over the chest port was made. Using blunt dissection th e chest port tubing was removed from the patient. Using further blunt dissection, the chest port wa s removed from the patient. The subcutaneous pocket was filled with Iodoform gauze and left the hea l by secondary intension. The incision site was dressed. The patient tolerated the procedure well, without immediate complication. COMPARISON: None available FINDINGS: Successful chest port removal and packing of the subcutaneous pocket with Iodoform gauze. Number of images: 1 IMPRESSION: Successful chest port removal and packing of the subcutaneous pocket with iodoform gauze. The Iodoform gauze should be changed every 7 days until the subcutaneous pocket has healed. RPTAT: QQ .Musa Rivero MD, MD Date Time Electronically viewed and signed by .Musa Rivero MD, MD on 02/18/2017 15:01 .P/
--- NOTE | 2017-02-18 16:29 | CONS ---
Date/Time of Note Date/Time of Note DATE: 02/18/17 TIME: 16:22 Assessment/Plan Assessment/Plan Chief Complaint/Hosp Course ID PROGRESS NOTE * I saw the patient briefly yesterday and discussed the case with Dr. Hernandez yesterday. Full note dictation by Dr. Hernandez completed today. * No fevers, VSS, patient is large morbid obese pleasant female, good historian , calm, cooperative. Right chest with significant area of erythema consistent with cellulitis at the site of the Port-A-Cath. Patient reports there has been pain at the site since placement. ID ASSESSMENT Cellulitis right chest Port-A-Cath site Carcinoma of left breast Obesity Hypertension Asthma Allergic rhinitis Hypothyroidism ABX ALLERGY: SULFA CURRENT ABX: Vancomycin IV and Ceftriaxone ID RECOMMENDATIONS Continue present pending culture results. Likely needs Port-A-Cath removed w/alternative PICC line placement. . Problems: Consultation Date/Type/Reason Admit Date/Time Feb 16, 2017 at 17:24 Initial Consult Date Type of Consultation: Infectious disease Referring Provider: CRISTA WOODS Exam/Review of Systems Vital Signs Vitals Vital Signs Date Time Temp Pulse Resp B/P Pulse Ox O2 Delivery O2 Flow Rate FiO2 02/18/17 08:08 98.8 62 18 134/65 99 02/17/17 04:10 Room Air 02/16/17 16:53 2.0 Intake and Output 02/17/17 02/17/17 02/18/17 15:00 23:00 07:00 Intake Total 1010 ml 850 ml Balance 1010 ml 850 ml Results Result Diagram: 02/18/17 0745 02/18/17 0745 Results 24 hrs Laboratory Tests Test 02/17/17 20:00 02/18/17 07:45 Vancomycin Level Trough 15.5 White Blood Count 3.9 #L Red Blood Count 3.09 L Hemoglobin 10.2 L Hematocrit 31.4 L Mean Corpuscular Volume 101.6 H Mean Corpuscular Hemoglobin 33.0 Mean Corpuscular Hemoglobin Concent 32.5 Red Cell Distribution Width 12.3 Platelet Count 189 Mean Platelet Volume 11.3 H Neutrophils % 60.5 Lymphocytes % 28.9 Monocytes % 8.8 Eosinophils % 1.0 Basophils % 0.5 Nucleated Red Blood Cells % 0.0 Neutrophils # 2.4 Lymphocytes # 1.1 Monocytes # 0.3 Eosinophils # 0.0 Basophils # 0.0 Nucleated Red Blood Cells # 0.0 Sodium Level 138 Potassium Level 4.2 Chloride Level 102 Carbon Dioxide Level 29 Anion Gap 11 Blood Urea Nitrogen 14 Creatinine 0.79 Glucose Level 108 Calcium Level 8.7 Medications Medications Current Medications Acyclovir (Zovirax) 800 mg DAILY PO Last administered on 02/18/17 08:54; Admin Dose 800 MG; Start 02/17/17 at 09:00 Albuterol (Ventolin Hfa) 2 puff Q4H PRN INH WHEEZING AND SOB; Start 02/16/17 at 18:00 Baclofen (Lioresal) 10 mg DAILY PO Last administered on 02/18/17 08:56; Admin Dose 10 MG; Start 02/17/17 at 09:00 Bupropion HCl (Wellbutrin) 75 mg BID PO Last administered on 02/18/17 08:55; Admin Dose 75 MG; Start 02/16/17 at 21:00 Docusate Sodium (Colace) 50 mg BID PO Last administered on 02/18/17 08:55; Admin Dose 50 MG; Start 02/16/17 at 21:00 Fluticasone Propionate (Flonase 0.05% Nasal) 1 spray DAILY NASAL Last administered on 02/17/17 09:00; Admin Dose 1 SPRAY; Start 02/17/17 at 09:00 Gabapentin (Neurontin) 300 mg TID PO Last administered on 02/18/17 12:51; Admin Dose 300 MG; Start 02/16/17 at 21:00 Meloxicam (Mobic) 15 mg DAILY PRN PO pain; Start 02/16/17 at 18:00 Montelukast Sodium (Singulair) 10 mg QHS PO Last administered on 02/17/17 20:19 ; Admin Dose 10 MG; Start 02/16/17 at 21:00 Sertraline HCl (Zoloft) 100 mg DAILY PO Last administered on 02/18/17 08:56; Admin Dose 100 MG; Start 02/17/17 at 09:00 Tramadol HCl 50 mg 50 mg Q6H PRN PO pain; Start 02/16/17 at 18:00 Ceftriaxone Sodium (Rocephin) 50 ml @ 100 mls/hr Q24H IVPB Last administered on 02/17/17 18:43; Admin Dose 100 MLS/HR; Start 02/16/17 at 18:30 Enoxaparin Sodium (Lovenox) 40 mg DAILY SC Last administered on 02/18/17 08:59 ; Admin Dose 40 MG; Start 02/17/17 at 09:00 Acetaminophen/ Hydrocodone Bitart ([place] (5/325)) 1 tab Q6H PRN PO pain Last administered on 02/18/17 12:51; Admin Dose 1 TAB; Start 02/16/17 at 18:00 Ondansetron HCl (Zofran Inj) 4 mg Q6H PRN IV NAUSEA AND/OR VOMITING Last administered on 02/17/17 22:10; Admin Dose 4 MG; Start 02/16/17 at 18:00 Acetaminophen (Tylenol Tab) 650 mg Q6H PRN PO PAIN AND OR ELEVATED TEMP; Start 02/16/17 at 18:00 Pantoprazole (Protonix Tab) 40 mg DAILY@06 PO Last administered on 02/18/17 05: 55; Admin Dose 40 MG; Start 02/17/17 at 06:00 Metoclopramide HCl 10 mg 10 mg Q6H PRN IV NAUSEA AND/OR VOMITING Last administered on 02/17/17 20:24; Admin Dose 10 MG; Start 02/17/17 at 04:10 Vancomycin HCl/ Sodium Chloride (Vancocin/NS) 250 ml @ 83.333 mls/ hr Q12H IVPB Last administered on 02/18/17 09:02; Admin Dose 83.333 MLS/HR; Start at 09:00 JHON WAKEFIELD NP Feb 18, 2017 16:29
[2017-02-18] MEDS: CEFTRIAXONE 1 GM/50 ML (PMX) 50 ML IVPB SCH (18:33)
[2017-02-18 19:44] VITALS: BP 141/84; RESP 16
[2017-02-18] MEDS: MONTELUKAST 10 MG TAB PO SCH (21:07)
[2017-02-18] MEDS: DOCUSATE SODIUM 10 MG/ML (10ML CUP) PO SCH (21:23)
[2017-02-18] MEDS: ONDANSETRON 4 MG INJ IV PRN (23:44)
[2017-02-19] MEDS: HYDROCODONE/APAP (5/325) TAB PO PRN ×3 (02:28→17:08)
[2017-02-19] MEDS: PANTOPRAZOLE (EC) 40 MG TAB PO SCH (05:57)
[2017-02-19] MEDS: LEVOTHYROXINE 150 MCG TAB PO SCH (05:57)
[2017-02-19 07:10] LABS: BASOPHILS % 0.3 % (0.0-2.0); EOSINOPHILS # 0.1 10^3/ul (0.0-0.5); EOSINOPHILS % 1.7 % (0.0-7.0); HEMOGLOBIN 9.6 g/dl (12.0-16.0); LYMPHOCYTES # 1.5 10^3/ul (0.8-2.9); LYMPHOCYTES % 42.3 % (15.0-51.0); MEAN CORPUSCULAR HEMOGLOBIN 33.3 pg (29.0-33.0); MEAN CORPUSCULAR HGB CONC 33.1 g/dl (32.0-37.0); MEAN CORPUSCULAR VOLUME 100.7 fl (82.0-101.0); MEAN PLATELET VOLUME 10.3 fl (7.4-10.4); MONOCYTE # 0.3 10^3/ul (0.3-0.9); MONOCYTES % 9.3 % (0.0-11.0); NEUTROPHIL # 1.6 10^3/ul (1.6-7.5); NEUTROPHILS % 46.1 % (39.0-77.0); PLATELET COUNT 176 10^3/UL (140-415); RED BLOOD COUNT 2.88 10^6/ul (4.20-5.40); RED CELL DISTRIBUTION WIDTH 12.1 % (11.5-14.5); WHITE BLOOD COUNT 3.4 10^3/ul (4.8-10.8)
[2017-02-19 08:05] VITALS: BP 137/86; RESP 16
[2017-02-19 08:30] LABS: CREATININE 0.82 mg/dl (0.44-1.00); POTASSIUM 3.9 mmol/L (3.5-5.1)
[2017-02-19] MEDS: ENOXAPARIN 40 MG/0.4 ML SYG SC SCH (09:06)
[2017-02-19] MEDS: FLUTICASONE 0.05% 16 GM NAS SPRAY NASAL SCH (09:08)
[2017-02-19] MEDS: VANCOMYCIN 1.25 GM in SOD CHLORIDE 0.9% 250 ML IVPB SCH ×2 (09:09→21:25)
[2017-02-19] MEDS: GABAPENTIN 300 MG CAP PO SCH ×3 (09:17→21:26)
[2017-02-19] MEDS: BACLOFEN 10 MG TAB PO SCH (09:18)
[2017-02-19] MEDS: SERTRALINE 100 MG TAB PO SCH (09:18)
[2017-02-19] MEDS: ACYCLOVIR 800 MG TAB PO SCH (09:18)
[2017-02-19] MEDS: BUPROPION 75 MG TAB PO SCH ×2 (09:18→21:26)
[2017-02-19] MEDS: DOCUSATE SODIUM 10 MG/ML (10ML CUP) PO SCH ×2 (09:19→21:26)
--- NOTE | 2017-02-19 16:52 | PN ---
Date/Time of Note Date/Time of Note DATE: 02/19/17 TIME: 16:48 Assessment/Plan VTE Prophylaxis VTE Prophylaxis Intervention: LMWH Lines/Catheters IV Catheter Type (from Nrs): Saline Lock Assessment/Plan Chief Complaint/Hosp Course 1. Infected Port-a Cath Line removed, continue antibiotics and await cath tip culture Patient currently on a line holiday 2. L breast ca on chemo -Patient will need to follow-up with Dr Lara 3. Asthma-stable 4. Chronic UTI 5. Chronic back pain 6. Hypothyroidism Prophylaxis: Lovenox Problems: Subjective 24 Hr Interval Summary Constitutional: no complaints Exam/Review of Systems Vital Signs Vitals Vital Signs Date Time Temp Pulse Resp B/P Pulse Ox O2 Delivery O2 Flow Rate FiO2 02/19/17 08:05 98.1 56 16 137/86 94 02/18/17 20:00 Room Air 02/16/17 16:53 2.0 Intake and Output 02/18/17 02/18/17 02/19/17 15:00 23:00 07:00 Intake Total 250 ml 950 ml 1270 ml Balance 250 ml 950 ml 1270 ml Exam Constitutional: alert, oriented Respiratory: clear to auscultation Cardiovascular: regular rate and rhythm Gastrointestinal: soft, No distended Musculoskeletal: nl extremities to inspection Results Result Diagram: 02/19/17 0653 02/19/17 0653 Results 24 hrs Laboratory Tests Test 02/19/17 06:53 White Blood Count 3.4 L Red Blood Count 2.88 L Hemoglobin 9.6 L Hematocrit 29.0 L Mean Corpuscular Volume 100.7 Mean Corpuscular Hemoglobin 33.3 H Mean Corpuscular Hemoglobin Concent 33.1 Red Cell Distribution Width 12.1 Platelet Count 176 Mean Platelet Volume 10.3 Neutrophils % 46.1 Lymphocytes % 42.3 Monocytes % 9.3 Eosinophils % 1.7 Basophils % 0.3 Nucleated Red Blood Cells % 0.0 Neutrophils # 1.6 Lymphocytes # 1.5 Monocytes # 0.3 Eosinophils # 0.1 Basophils # 0.0 Nucleated Red Blood Cells # 0.0 Sodium Level 142 Potassium Level 3.9 Chloride Level 102 Carbon Dioxide Level 28 Anion Gap 16 Blood Urea Nitrogen 13 Creatinine 0.82 Glucose Level 97 Calcium Level 9.0 Medications Medications Current Medications Acyclovir (Zovirax) 800 mg DAILY PO Last administered on 02/19/17 09:18; Admin Dose 800 MG; Start 02/17/17 at 09:00 Albuterol (Ventolin Hfa) 2 puff Q4H PRN INH WHEEZING AND SOB; Start 02/16/17 at 18:00 Baclofen (Lioresal) 10 mg DAILY PO Last administered on 02/19/17 09:18; Admin Dose 10 MG; Start 02/17/17 at 09:00 Bupropion HCl (Wellbutrin) 75 mg BID PO Last administered on 02/19/17 09:18; Admin Dose 75 MG; Start 02/16/17 at 21:00 Fluticasone Propionate (Flonase 0.05% Nasal) 1 spray DAILY NASAL Last administered on 02/19/17 09:08; Admin Dose 1 SPRAY; Start 02/17/17 at 09:00 Gabapentin (Neurontin) 300 mg TID PO Last administered on 02/19/17 12:58; Admin Dose 300 MG; Start 02/16/17 at 21:00 Meloxicam (Mobic) 15 mg DAILY PRN PO pain; Start 02/16/17 at 18:00 Montelukast Sodium (Singulair) 10 mg QHS PO Last administered on 02/18/17 21:07 ; Admin Dose 10 MG; Start 02/16/17 at 21:00 Sertraline HCl (Zoloft) 100 mg DAILY PO Last administered on 02/19/17 09:18; Admin Dose 100 MG; Start 02/17/17 at 09:00 Tramadol HCl 50 mg 50 mg Q6H PRN PO pain; Start 02/16/17 at 18:00 Ceftriaxone Sodium (Rocephin) 50 ml @ 100 mls/hr Q24H IVPB Last administered on 02/18/17 18:33; Admin Dose 100 MLS/HR; Start 02/16/17 at 18:30 Enoxaparin Sodium (Lovenox) 40 mg DAILY SC Last administered on 02/19/17 09:06 ; Admin Dose 40 MG; Start 02/17/17 at 09:00 Acetaminophen/ Hydrocodone Bitart ([place] (5/325)) 1 tab Q6H PRN PO pain Last administered on 02/19/17 09:18; Admin Dose 1 TAB; Start 02/16/17 at 18:00 Ondansetron HCl (Zofran Inj) 4 mg Q6H PRN IV NAUSEA AND/OR VOMITING Last administered on 02/18/17 23:44; Admin Dose 4 MG; Start 02/16/17 at 18:00 Acetaminophen (Tylenol Tab) 650 mg Q6H PRN PO PAIN AND OR ELEVATED TEMP; Start 02/16/17 at 18:00 Pantoprazole (Protonix Tab) 40 mg DAILY@06 PO Last administered on 02/19/17 05: 57; Admin Dose 40 MG; Start 02/17/17 at 06:00 Metoclopramide HCl 10 mg 10 mg Q6H PRN IV NAUSEA AND/OR VOMITING Last administered on 02/17/17 20:24; Admin Dose 10 MG; Start 02/17/17 at 04:10 Vancomycin HCl/ Sodium Chloride (Vancocin/NS) 250 ml @ 83.333 mls/ hr Q12H IVPB Last administered on 02/19/17 09:09; Admin Dose 83.333 MLS/HR; Start at 09:00 Docusate Sodium (Colace Liquid Cup) 50 mg BID PO Last administered on 02/19/17 09:19; Admin Dose 50 MG; Start 02/18/17 at 21:00 Miscellaneous Information (*Rx Drug Level Order Reminder*) 1 ONCE ONCE XX ; Start 02/19/17 at 20:00; Stop 02/19/17 at 20:01 MARK MTZ Feb 19, 2017 16:51
--- NOTE | 2017-02-19 17:57 | CONS ---
Date/Time of Note Date/Time of Note DATE: 02/19/17 TIME: 17:53 Assessment/Plan Assessment/Plan Chief Complaint/Hosp Course Subjective: No acute changes, patient is alert, complaining of nausea, no vomiting, no diarrhea Antimicrobials: Vancomycin, Rocephin Physical examination: Obese, well-developed middle-aged white woman who is alert , in no distress. Head atraumatic, normocephalic, sclera nonicteric, bugle mucosa dry. Neck is obese, trachea midline. Chest rise symmetrical, breath sounds clear, right chest wall dressing intact. Abdomen soft, bowel tones present. Extremities without cyanosis Assessment: 1. Right chest cellulitis, status post Port-A-Cath removal 2. Left breast cancer 3. Obesity 4. Hypertension 5. Allergy to sulfa Plan: Remain stable, pending final cultures, continue antibiotics. Discussed with patient Problems: Consultation Date/Type/Reason Admit Date/Time Feb 16, 2017 at 17:24 Initial Consult Date Type of Consultation: Infectious disease Referring Provider: CRISTA WOODS Exam/Review of Systems Vital Signs Vitals Vital Signs Date Time Temp Pulse Resp B/P Pulse Ox O2 Delivery O2 Flow Rate FiO2 02/19/17 08:05 98.1 56 16 137/86 94 02/18/17 20:00 Room Air 02/16/17 16:53 2.0 Intake and Output 02/18/17 02/18/17 02/19/17 14:59 22:59 06:59 Intake Total 250 ml 950 ml 1270 ml Balance 250 ml 950 ml 1270 ml Results Result Diagram: 02/19/17 0653 02/19/17 0653 Results 24 hrs Laboratory Tests Test 02/19/17 06:53 White Blood Count 3.4 L Red Blood Count 2.88 L Hemoglobin 9.6 L Hematocrit 29.0 L Mean Corpuscular Volume 100.7 Mean Corpuscular Hemoglobin 33.3 H Mean Corpuscular Hemoglobin Concent 33.1 Red Cell Distribution Width 12.1 Platelet Count 176 Mean Platelet Volume 10.3 Neutrophils % 46.1 Lymphocytes % 42.3 Monocytes % 9.3 Eosinophils % 1.7 Basophils % 0.3 Nucleated Red Blood Cells % 0.0 Neutrophils # 1.6 Lymphocytes # 1.5 Monocytes # 0.3 Eosinophils # 0.1 Basophils # 0.0 Nucleated Red Blood Cells # 0.0 Sodium Level 142 Potassium Level 3.9 Chloride Level 102 Carbon Dioxide Level 28 Anion Gap 16 Blood Urea Nitrogen 13 Creatinine 0.82 Glucose Level 97 Calcium Level 9.0 Medications Medications Current Medications Acyclovir (Zovirax) 800 mg DAILY PO Last administered on 02/19/17 09:18; Admin Dose 800 MG; Start 02/17/17 at 09:00 Albuterol (Ventolin Hfa) 2 puff Q4H PRN INH WHEEZING AND SOB; Start 02/16/17 at 18:00 Baclofen (Lioresal) 10 mg DAILY PO Last administered on 02/19/17 09:18; Admin Dose 10 MG; Start 02/17/17 at 09:00 Bupropion HCl (Wellbutrin) 75 mg BID PO Last administered on 02/19/17 09:18; Admin Dose 75 MG; Start 02/16/17 at 21:00 Fluticasone Propionate (Flonase 0.05% Nasal) 1 spray DAILY NASAL Last administered on 02/19/17 09:08; Admin Dose 1 SPRAY; Start 02/17/17 at 09:00 Gabapentin (Neurontin) 300 mg TID PO Last administered on 02/19/17 12:58; Admin Dose 300 MG; Start 02/16/17 at 21:00 Meloxicam (Mobic) 15 mg DAILY PRN PO pain; Start 02/16/17 at 18:00 Montelukast Sodium (Singulair) 10 mg QHS PO Last administered on 02/18/17 21:07 ; Admin Dose 10 MG; Start 02/16/17 at 21:00 Sertraline HCl (Zoloft) 100 mg DAILY PO Last administered on 02/19/17 09:18; Admin Dose 100 MG; Start 02/17/17 at 09:00 Tramadol HCl 50 mg 50 mg Q6H PRN PO pain; Start 02/16/17 at 18:00 Ceftriaxone Sodium (Rocephin) 50 ml @ 100 mls/hr Q24H IVPB Last administered on 02/18/17 18:33; Admin Dose 100 MLS/HR; Start 02/16/17 at 18:30 Enoxaparin Sodium (Lovenox) 40 mg DAILY SC Last administered on 02/19/17 09:06 ; Admin Dose 40 MG; Start 02/17/17 at 09:00 Acetaminophen/ Hydrocodone Bitart ([place] (5/325)) 1 tab Q6H PRN PO pain Last administered on 02/19/17 17:08; Admin Dose 1 TAB; Start 02/16/17 at 18:00 Ondansetron HCl (Zofran Inj) 4 mg Q6H PRN IV NAUSEA AND/OR VOMITING Last administered on 02/18/17 23:44; Admin Dose 4 MG; Start 02/16/17 at 18:00 Acetaminophen (Tylenol Tab) 650 mg Q6H PRN PO PAIN AND OR ELEVATED TEMP; Start 02/16/17 at 18:00 Pantoprazole (Protonix Tab) 40 mg DAILY@06 PO Last administered on 02/19/17 05: 57; Admin Dose 40 MG; Start 02/17/17 at 06:00 Metoclopramide HCl 10 mg 10 mg Q6H PRN IV NAUSEA AND/OR VOMITING Last administered on 02/17/17 20:24; Admin Dose 10 MG; Start 02/17/17 at 04:10 Vancomycin HCl/ Sodium Chloride (Vancocin/NS) 250 ml @ 83.333 mls/ hr Q12H IVPB Last administered on 02/19/17 09:09; Admin Dose 83.333 MLS/HR; Start at 09:00 Docusate Sodium (Colace Liquid Cup) 50 mg BID PO Last administered on 02/19/17 09:19; Admin Dose 50 MG; Start 02/18/17 at 21:00 Miscellaneous Information (*Rx Drug Level Order Reminder*) 1 ONCE ONCE XX ; Start 02/19/17 at 20:00; Stop 02/19/17 at 20:01 KENYA LEWIS NP Feb 19, 2017 17:57
[2017-02-19] MEDS: CEFTRIAXONE 1 GM/50 ML (PMX) 50 ML IVPB SCH (19:27)
[2017-02-19 20:31] VITALS: BP 152/66; RESP 18
[2017-02-19] MEDS: MONTELUKAST 10 MG TAB PO SCH (21:26)
[2017-02-20] MEDS: HYDROCODONE/APAP (5/325) TAB PO PRN ×3 (00:26→19:35)
[2017-02-20 05:32] LABS: ADD SCAN DIFF NO
[2017-02-20 05:38] LABS: BASOPHILS % 0.2 % (0.0-2.0); EOSINOPHILS # 0.1 10^3/ul (0.0-0.5); EOSINOPHILS % 1.6 % (0.0-7.0); HEMATOCRIT 30.9 % (37.0-47.0); LYMPHOCYTES # 1.8 10^3/ul (0.8-2.9); LYMPHOCYTES % 41.5 % (15.0-51.0); MEAN CORPUSCULAR HEMOGLOBIN 32.8 pg (29.0-33.0); MEAN CORPUSCULAR HGB CONC 32.4 g/dl (32.0-37.0); MEAN CORPUSCULAR VOLUME 101.3 fl (82.0-101.0); MEAN PLATELET VOLUME 10.8 fl (7.4-10.4); MONOCYTE # 0.4 10^3/ul (0.3-0.9); MONOCYTES % 8.9 % (0.0-11.0); NEUTROPHIL # 2.1 10^3/ul (1.6-7.5); NEUTROPHILS % 47.6 % (39.0-77.0); PLATELET COUNT 210 10^3/UL (140-415); RED BLOOD COUNT 3.05 10^6/ul (4.20-5.40); RED CELL DISTRIBUTION WIDTH 12.5 % (11.5-14.5); WHITE BLOOD COUNT 4.4 10^3/ul (4.8-10.8)
[2017-02-20] MEDS: PANTOPRAZOLE (EC) 40 MG TAB PO SCH (06:08)
[2017-02-20] MEDS: LEVOTHYROXINE 150 MCG TAB PO SCH (06:08)
[2017-02-20 07:17] LABS: CALCIUM 9.1 mg/dl (8.4-10.2); CREATININE 0.83 mg/dl (0.44-1.00); MAGNESIUM 2.1 mg/dl (1.7-2.5); POTASSIUM 3.9 mmol/L (3.5-5.1)
[2017-02-20 07:44] VITALS: BP 150/73; RESP 16
[2017-02-20] MEDS: DOCUSATE SODIUM 10 MG/ML (10ML CUP) PO SCH ×2 (09:35→21:02)
[2017-02-20] MEDS: BACLOFEN 10 MG TAB PO SCH (09:35)
[2017-02-20] MEDS: BUPROPION 75 MG TAB PO SCH ×2 (09:35→21:02)
[2017-02-20] MEDS: SERTRALINE 100 MG TAB PO SCH (09:35)
[2017-02-20] MEDS: VANCOMYCIN 1 GM in NS 250 ML IVPB SCH ×2 (09:35→21:54)
[2017-02-20] MEDS: GABAPENTIN 300 MG CAP PO SCH ×3 (09:35→21:02)
[2017-02-20] MEDS: ACYCLOVIR 800 MG TAB PO SCH (09:35)
[2017-02-20] MEDS: ENOXAPARIN 40 MG/0.4 ML SYG SC SCH (09:49)
[2017-02-20] MEDS: FLUTICASONE 0.05% 16 GM NAS SPRAY NASAL SCH (09:50)
--- NOTE | 2017-02-20 13:47 | CONS ---
Date/Time of Note Date/Time of Note DATE: 02/20/17 TIME: 13:46 Assessment/Plan Assessment/Plan Chief Complaint/Hosp Course Alert, feels much better, looks comfortable, no fevers, no nausea vomiting diarrhea. Laboratory data: WBC 4.4 H&H 10 and 30.9 platelets 210 no shift no balance BUN 11 creatinine 0.83 Microbiology: Blood cultures remain negative catheter site culture growing staph species Antimicrobials: Vancomycin Rocephin: Physical examination: Obese, well-developed middle-aged white woman who is alert , in no distress. Head atraumatic, normocephalic, sclera nonicteric, bugle mucosa dry. Neck is obese, trachea midline. Chest rise symmetrical, breath sounds clear, right chest wall dressing intact. Abdomen soft, bowel tones present. Extremities without cyanosis Assessment: 1. Right chest cellulitis, status post Port-A-Cath removal 2. Left breast cancer 3. Obesity 4. Hypertension 5. Allergy to sulfa Plan: Remain stable, continue antibiotics, anticipate discharge with PICC. Discussed with patient Problems: Consultation Date/Type/Reason Admit Date/Time Feb 16, 2017 at 17:24 Type of Consultation: Infectious disease Referring Provider: CRISTA WOODS Exam/Review of Systems Vital Signs Vitals Vital Signs Date Time Temp Pulse Resp B/P Pulse Ox O2 Delivery O2 Flow Rate FiO2 02/20/17 07:44 98.5 55 16 150/73 95 02/19/17 20:00 Room Air 02/16/17 16:53 2.0 Intake and Output 02/19/17 02/19/17 02/20/17 15:00 23:00 07:00 Intake Total 250 ml 1630 ml 730 ml Balance 250 ml 1630 ml 730 ml Results Result Diagram: 02/20/17 0505 02/20/17 0511 Results 24 hrs Laboratory Tests Test 02/19/17 20:05 02/20/17 05:05 02/20/17 05:11 Vancomycin Level Trough 15.3 White Blood Count 4.4 #L Red Blood Count 3.05 L Hemoglobin 10.0 L Hematocrit 30.9 L Mean Corpuscular Volume 101.3 H Mean Corpuscular Hemoglobin 32.8 Mean Corpuscular Hemoglobin Concent 32.4 Red Cell Distribution Width 12.5 Platelet Count 210 Mean Platelet Volume 10.8 H Neutrophils % 47.6 Lymphocytes % 41.5 Monocytes % 8.9 Eosinophils % 1.6 Basophils % 0.2 Nucleated Red Blood Cells % 0.0 Neutrophils # 2.1 Lymphocytes # 1.8 Monocytes # 0.4 Eosinophils # 0.1 Basophils # 0.0 Nucleated Red Blood Cells # 0.0 Sodium Level 141 Potassium Level 3.9 Chloride Level 105 Carbon Dioxide Level 30 Anion Gap 10 # Blood Urea Nitrogen 11 Creatinine 0.83 Glucose Level 94 Calcium Level 9.1 Magnesium Level 2.1 Medications Medications Current Medications Acyclovir (Zovirax) 800 mg DAILY PO Last administered on 02/20/17 09:35; Admin Dose 800 MG; Start 02/17/17 at 09:00 Albuterol (Ventolin Hfa) 2 puff Q4H PRN INH WHEEZING AND SOB; Start 02/16/17 at 18:00 Baclofen (Lioresal) 10 mg DAILY PO Last administered on 02/20/17 09:35; Admin Dose 10 MG; Start 02/17/17 at 09:00 Bupropion HCl (Wellbutrin) 75 mg BID PO Last administered on 02/20/17 09:35; Admin Dose 75 MG; Start 02/16/17 at 21:00 Fluticasone Propionate (Flonase 0.05% Nasal) 1 spray DAILY NASAL Last administered on 02/20/17 09:50; Admin Dose 1 SPRAY; Start 02/17/17 at 09:00 Gabapentin (Neurontin) 300 mg TID PO Last administered on 02/20/17 12:48; Admin Dose 300 MG; Start 02/16/17 at 21:00 Meloxicam (Mobic) 15 mg DAILY PRN PO pain; Start 02/16/17 at 18:00 Montelukast Sodium (Singulair) 10 mg QHS PO Last administered on 02/19/17 21:26 ; Admin Dose 10 MG; Start 02/16/17 at 21:00 Sertraline HCl (Zoloft) 100 mg DAILY PO Last administered on 02/20/17 09:35; Admin Dose 100 MG; Start 02/17/17 at 09:00 Tramadol HCl 50 mg 50 mg Q6H PRN PO pain; Start 02/16/17 at 18:00 Ceftriaxone Sodium (Rocephin) 50 ml @ 100 mls/hr Q24H IVPB Last administered on 02/19/17 19:27; Admin Dose 100 MLS/HR; Start 02/16/17 at 18:30 Enoxaparin Sodium (Lovenox) 40 mg DAILY SC Last administered on 02/20/17 09:49 ; Admin Dose 40 MG; Start 02/17/17 at 09:00 Acetaminophen/ Hydrocodone Bitart ([place] (5/325)) 1 tab Q6H PRN PO pain Last administered on 02/20/17 09:49; Admin Dose 1 TAB; Start 02/16/17 at 18:00 Ondansetron HCl (Zofran Inj) 4 mg Q6H PRN IV NAUSEA AND/OR VOMITING Last administered on 02/18/17 23:44; Admin Dose 4 MG; Start 02/16/17 at 18:00 Acetaminophen (Tylenol Tab) 650 mg Q6H PRN PO PAIN AND OR ELEVATED TEMP; Start 02/16/17 at 18:00 Pantoprazole (Protonix Tab) 40 mg DAILY@06 PO Last administered on 02/20/17 06: 08; Admin Dose 40 MG; Start 02/17/17 at 06:00 Metoclopramide HCl (Reglan) 10 mg Q6H PRN IV NAUSEA AND/OR VOMITING Last administered on 02/17/17 20:24; Admin Dose 10 MG; Start 02/17/17 at 04:10 Docusate Sodium 50 mg 50 mg BID PO Last administered on 02/20/17 09:35; Admin Dose 50 MG; Start 02/18/17 at 21:00 Vancomycin HCl (Vancocin) 250 ml @ 125 mls/hr Q12H IVPB Last administered on 09:35; Admin Dose 125 MLS/HR; Start 02/20/17 at 10:00 KENYA LEWIS NP Feb 20, 2017 13:47
--- NOTE | 2017-02-20 17:48 | PN ---
Date/Time of Note Date/Time of Note DATE: 02/20/17 TIME: 17:45 Assessment/Plan VTE Prophylaxis VTE Prophylaxis Intervention: LMWH Lines/Catheters IV Catheter Type (from Nrsg): Saline Lock Assessment/Plan Assessment/Plan Cellulitis right chest Port-A-Cath site Carcinoma of left breast Obesity Hypertension Asthma Allergic rhinitis Hypothyroidism Plan: s/p Removal of merrill cath Cultures pending on IV abx, ID following Will wait for final culture results to decide for abx by ID Lovenox for DVT prophylaxis Subjective 24 Hr Interval Summary Free Text/Dictation remained stable,a febrile, cultures pending Exam/Review of Systems Vital Signs Vitals Vital Signs Date Time Temp Pulse Resp B/P Pulse Ox O2 Delivery O2 Flow Rate FiO2 02/20/17 07:44 98.5 55 16 150/73 95 02/19/17 20:00 Room Air 02/16/17 16:53 2.0 Intake and Output 02/19/17 02/19/17 02/20/17 15:00 23:00 07:00 Intake Total 250 ml 1630 ml 730 ml Balance 250 ml 1630 ml 730 ml Exam Constitutional: alert, oriented Head: atraumatic, normocephalic Neck: non-tender, supple Chest: Erythema, warmth, tenderness,Right chest dressing in place Respiratory: clear to auscultation Cardiovascular: regular rate and rhythm Gastrointestinal: nl liver, spleen, non-tender, soft Extremities: normal pulses Results Result Diagram: 02/20/17 0505 02/20/17 0511 Results 24 hrs Laboratory Tests Test 02/19/17 20:05 02/20/17 05:05 02/20/17 05:11 Vancomycin Level Trough 15.3 White Blood Count 4.4 #L Red Blood Count 3.05 L Hemoglobin 10.0 L Hematocrit 30.9 L Mean Corpuscular Volume 101.3 H Mean Corpuscular Hemoglobin 32.8 Mean Corpuscular Hemoglobin Concent 32.4 Red Cell Distribution Width 12.5 Platelet Count 210 Mean Platelet Volume 10.8 H Neutrophils % 47.6 Lymphocytes % 41.5 Monocytes % 8.9 Eosinophils % 1.6 Basophils % 0.2 Nucleated Red Blood Cells % 0.0 Neutrophils # 2.1 Lymphocytes # 1.8 Monocytes # 0.4 Eosinophils # 0.1 Basophils # 0.0 Nucleated Red Blood Cells # 0.0 Sodium Level 141 Potassium Level 3.9 Chloride Level 105 Carbon Dioxide Level 30 Anion Gap 10 # Blood Urea Nitrogen 11 Creatinine 0.83 Glucose Level 94 Calcium Level 9.1 Magnesium Level 2.1 Medications Medications Current Medications Acyclovir (Zovirax) 800 mg DAILY PO Last administered on 02/20/17 09:35; Admin Dose 800 MG; Start 02/17/17 at 09:00 Albuterol (Ventolin Hfa) 2 puff Q4H PRN INH WHEEZING AND SOB; Start 02/16/17 at 18:00 Baclofen (Lioresal) 10 mg DAILY PO Last administered on 02/20/17 09:35; Admin Dose 10 MG; Start 02/17/17 at 09:00 Bupropion HCl (Wellbutrin) 75 mg BID PO Last administered on 02/20/17 09:35; Admin Dose 75 MG; Start 02/16/17 at 21:00 Fluticasone Propionate (Flonase 0.05% Nasal) 1 spray DAILY NASAL Last administered on 02/20/17 09:50; Admin Dose 1 SPRAY; Start 02/17/17 at 09:00 Gabapentin (Neurontin) 300 mg TID PO Last administered on 02/20/17 12:48; Admin Dose 300 MG; Start 02/16/17 at 21:00 Meloxicam (Mobic) 15 mg DAILY PRN PO pain; Start 02/16/17 at 18:00 Montelukast Sodium (Singulair) 10 mg QHS PO Last administered on 02/19/17 21:26 ; Admin Dose 10 MG; Start 02/16/17 at 21:00 Sertraline HCl (Zoloft) 100 mg DAILY PO Last administered on 02/20/17 09:35; Admin Dose 100 MG; Start 02/17/17 at 09:00 Tramadol HCl 50 mg 50 mg Q6H PRN PO pain; Start 02/16/17 at 18:00 Ceftriaxone Sodium (Rocephin) 50 ml @ 100 mls/hr Q24H IVPB Last administered on 02/19/17 19:27; Admin Dose 100 MLS/HR; Start 02/16/17 at 18:30 Enoxaparin Sodium (Lovenox) 40 mg DAILY SC Last administered on 02/20/17 09:49 ; Admin Dose 40 MG; Start 02/17/17 at 09:00 Acetaminophen/ Hydrocodone Bitart ([place] (5/325)) 1 tab Q6H PRN PO pain Last administered on 02/20/17 09:49; Admin Dose 1 TAB; Start 02/16/17 at 18:00 Ondansetron HCl (Zofran Inj) 4 mg Q6H PRN IV NAUSEA AND/OR VOMITING Last administered on 02/18/17 23:44; Admin Dose 4 MG; Start 02/16/17 at 18:00 Acetaminophen (Tylenol Tab) 650 mg Q6H PRN PO PAIN AND OR ELEVATED TEMP; Start 02/16/17 at 18:00 Pantoprazole (Protonix Tab) 40 mg DAILY@06 PO Last administered on 02/20/17 06: 08; Admin Dose 40 MG; Start 02/17/17 at 06:00 Metoclopramide HCl (Reglan) 10 mg Q6H PRN IV NAUSEA AND/OR VOMITING Last administered on 02/17/17 20:24; Admin Dose 10 MG; Start 02/17/17 at 04:10 Docusate Sodium 50 mg 50 mg BID PO Last administered on 02/20/17 09:35; Admin Dose 50 MG; Start 02/18/17 at 21:00 Vancomycin HCl (Vancocin) 250 ml @ 125 mls/hr Q12H IVPB Last administered on 09:35; Admin Dose 125 MLS/HR; Start 02/20/17 at 10:00 ELIZABETH VELAZQUEZ MD Feb 20, 2017 17:48
[2017-02-20] MEDS: CEFTRIAXONE 1 GM/50 ML (PMX) 50 ML IVPB SCH (18:01)
[2017-02-20 20:16] VITALS: BP 135/85; RESP 18
[2017-02-20] MEDS: ONDANSETRON 4 MG INJ IV PRN (21:01)
[2017-02-20] MEDS: MONTELUKAST 10 MG TAB PO SCH (21:02)
[2017-02-21 06:09] LABS: ADD SCAN DIFF NO
[2017-02-21 06:10] LABS: BASOPHILS % 0.4 % (0.0-2.0); EOSINOPHILS # 0.1 10^3/ul (0.0-0.5); EOSINOPHILS % 1.5 % (0.0-7.0); HEMATOCRIT 27.9 % (37.0-47.0); HEMOGLOBIN 9.6 g/dl (12.0-16.0); LYMPHOCYTES # 1.4 10^3/ul (0.8-2.9); LYMPHOCYTES % 27.6 % (15.0-51.0); MEAN CORPUSCULAR HEMOGLOBIN 34.8 pg (29.0-33.0); MEAN CORPUSCULAR HGB CONC 34.4 g/dl (32.0-37.0); MEAN CORPUSCULAR VOLUME 101.1 fl (82.0-101.0); MEAN PLATELET VOLUME 10.7 fl (7.4-10.4); MONOCYTE # 0.5 10^3/ul (0.3-0.9); MONOCYTES % 8.6 % (0.0-11.0); NEUTROPHIL # 3.2 10^3/ul (1.6-7.5); NEUTROPHILS % 61.7 % (39.0-77.0); PLATELET COUNT 204 10^3/UL (140-415); RED BLOOD COUNT 2.76 10^6/ul (4.20-5.40); RED CELL DISTRIBUTION WIDTH 12.6 % (11.5-14.5); WHITE BLOOD COUNT 5.2 10^3/ul (4.8-10.8)
[2017-02-21] MEDS: LEVOTHYROXINE 150 MCG TAB PO SCH (06:15)
[2017-02-21] MEDS: PANTOPRAZOLE (EC) 40 MG TAB PO SCH (06:15)
[2017-02-21] MEDS: ONDANSETRON 4 MG INJ IV PRN (06:23)
[2017-02-21] MEDS: HYDROCODONE/APAP (5/325) TAB PO PRN ×3 (06:23→21:45)
[2017-02-21 06:24] LABS: INR 0.9; PROTIME 12.1 Sec (12.2-14.2); PT RATIO 0.9
[2017-02-21 06:40] LABS: PARTIAL THROMBOPLASTIN TIME 31.1 Sec (25.0-35.0)
[2017-02-21 07:02] LABS: CALCIUM 9.2 mg/dl (8.4-10.2); CREATININE 0.84 mg/dl (0.44-1.00); POTASSIUM 3.9 mmol/L (3.5-5.1)
[2017-02-21 07:11] VITALS: BP 111/68; RESP 20
[2017-02-21] MEDS: SERTRALINE 100 MG TAB PO SCH (08:42)
[2017-02-21] MEDS: ACYCLOVIR 800 MG TAB PO SCH (08:42)
[2017-02-21] MEDS: BACLOFEN 10 MG TAB PO SCH (08:42)
[2017-02-21] MEDS: GABAPENTIN 300 MG CAP PO SCH ×3 (08:42→21:44)
[2017-02-21] MEDS: BUPROPION 75 MG TAB PO SCH ×2 (08:42→21:44)
[2017-02-21] MEDS: ENOXAPARIN 40 MG/0.4 ML SYG SC SCH (08:49)
[2017-02-21] MEDS: FLUTICASONE 0.05% 16 GM NAS SPRAY NASAL SCH (08:49)
[2017-02-21] MEDS: DOCUSATE SODIUM 10 MG/ML (10ML CUP) PO SCH ×2 (08:50→21:44)
--- NOTE | 2017-02-21 10:05 | CONS ---
Date/Time of Note Date/Time of Note DATE: 02/21/17 TIME: 10:03 Assessment/Plan Assessment/Plan Chief Complaint/Hosp Course Alert, complaining of headache and on and off nausea, no vomiting, no diarrhea, no fevers Microbiology: Blood cultures remain negative catheter site culture growing staph species Antimicrobials: Vancomycin Rocephin: Physical examination: Obese, well-developed middle-aged white woman who is alert , in no distress. Head atraumatic, normocephalic, sclera nonicteric, bugle mucosa dry. Neck is obese, trachea midline. Chest rise symmetrical, breath sounds clear, right chest wall dressing intact. Abdomen soft, bowel tones present. Extremities without cyanosis Assessment: 1. Right chest cellulitis, status post infected Port-A-Cath removal 2. Left breast cancer 3. Obesity 4. Hypertension 5. Allergy to sulfa Plan: Remain stable, dc Rocephin, continue Vanco for 2 more weeks, consider PICC placement. Discussed with staff Problems: Consultation Date/Type/Reason Admit Date/Time Feb 16, 2017 at 17:24 Type of Consultation: Infectious disease Referring Provider: CRISTA WOODS Exam/Review of Systems Vital Signs Vitals Vital Signs Date Time Temp Pulse Resp B/P Pulse Ox O2 Delivery O2 Flow Rate FiO2 02/21/17 07:11 97.7 58 20 111/68 92 02/20/17 20:00 Room Air Intake and Output 02/20/17 02/20/17 02/21/17 15:00 23:00 07:00 Intake Total 250 ml 1250 ml 650 ml Output Total 405 ml 4 ml Balance 250 ml 845 ml 646 ml Results Result Diagram: 02/21/17 0535 02/21/17 0535 Results 24 hrs Laboratory Tests Test 02/21/17 05:35 White Blood Count 5.2 Red Blood Count 2.76 L Hemoglobin 9.6 L Hematocrit 27.9 L Mean Corpuscular Volume 101.1 H Mean Corpuscular Hemoglobin 34.8 H Mean Corpuscular Hemoglobin Concent 34.4 Red Cell Distribution Width 12.6 Platelet Count 204 Mean Platelet Volume 10.7 H Neutrophils % 61.7 Lymphocytes % 27.6 Monocytes % 8.6 Eosinophils % 1.5 Basophils % 0.4 Nucleated Red Blood Cells % 0.0 Neutrophils # 3.2 Lymphocytes # 1.4 Monocytes # 0.5 Eosinophils # 0.1 Basophils # 0.0 Nucleated Red Blood Cells # 0.0 Prothrombin Time 12.1 L Prothrombin Time Ratio 0.9 INR International Normalized Ratio 0.90 Activated Partial Thromboplast Time 31.1 Sodium Level 142 Potassium Level 3.9 Chloride Level 101 Carbon Dioxide Level 28 Anion Gap 17 #H Blood Urea Nitrogen 16 Creatinine 0.84 Glucose Level 96 Calcium Level 9.2 Medications Medications Current Medications Acyclovir (Zovirax) 800 mg DAILY PO Last administered on 02/21/17 08:42; Admin Dose 800 MG; Start 02/17/17 at 09:00 Albuterol (Ventolin Hfa) 2 puff Q4H PRN INH WHEEZING AND SOB; Start 02/16/17 at 18:00 Baclofen (Lioresal) 10 mg DAILY PO Last administered on 02/21/17 08:42; Admin Dose 10 MG; Start 02/17/17 at 09:00 Bupropion HCl (Wellbutrin) 75 mg BID PO Last administered on 02/21/17 08:42; Admin Dose 75 MG; Start 02/16/17 at 21:00 Fluticasone Propionate (Flonase 0.05% Nasal) 1 spray DAILY NASAL Last administered on 02/21/17 08:49; Admin Dose 1 SPRAY; Start 02/17/17 at 09:00 Gabapentin (Neurontin) 300 mg TID PO Last administered on 02/21/17 08:42; Admin Dose 300 MG; Start 02/16/17 at 21:00 Meloxicam (Mobic) 15 mg DAILY PRN PO pain; Start 02/16/17 at 18:00 Montelukast Sodium (Singulair) 10 mg QHS PO Last administered on 02/20/17 21:02 ; Admin Dose 10 MG; Start 02/16/17 at 21:00 Sertraline HCl (Zoloft) 100 mg DAILY PO Last administered on 02/21/17 08:42; Admin Dose 100 MG; Start 02/17/17 at 09:00 Tramadol HCl 50 mg 50 mg Q6H PRN PO pain; Start 02/16/17 at 18:00 Ceftriaxone Sodium (Rocephin) 50 ml @ 100 mls/hr Q24H IVPB Last administered on 02/20/17 18:01; Admin Dose 100 MLS/HR; Start 02/16/17 at 18:30 Enoxaparin Sodium (Lovenox) 40 mg DAILY SC Last administered on 02/21/17 08:49 ; Admin Dose 40 MG; Start 02/17/17 at 09:00 Acetaminophen/ Hydrocodone Bitart ([place] (5/325)) 1 tab Q6H PRN PO pain Last administered on 02/21/17 06:23; Admin Dose 1 TAB; Start 02/16/17 at 18:00 Ondansetron HCl (Zofran Inj) 4 mg Q6H PRN IV NAUSEA AND/OR VOMITING Last administered on 02/21/17 06:23; Admin Dose 4 MG; Start 02/16/17 at 18:00 Acetaminophen (Tylenol Tab) 650 mg Q6H PRN PO PAIN AND OR ELEVATED TEMP; Start 02/16/17 at 18:00 Pantoprazole (Protonix Tab) 40 mg DAILY@06 PO Last administered on 02/21/17 06: 15; Admin Dose 40 MG; Start 02/17/17 at 06:00 Metoclopramide HCl (Reglan) 10 mg Q6H PRN IV NAUSEA AND/OR VOMITING Last administered on 02/17/17 20:24; Admin Dose 10 MG; Start 02/17/17 at 04:10 Docusate Sodium 50 mg 50 mg BID PO Last administered on 02/21/17 08:50; Admin Dose 50 MG; Start 02/18/17 at 21:00 Vancomycin HCl (Vancocin) 250 ml @ 125 mls/hr Q12H IVPB Last administered on 21:54; Admin Dose 125 MLS/HR; Start 02/20/17 at 10:00 KENYA LEWIS NP Feb 21, 2017 10:05
[2017-02-21] MEDS: traMADol 50 MG TAB PO PRN (10:57)
[2017-02-21] MEDS: VANCOMYCIN 1 GM in NS 250 ML IVPB SCH ×2 (10:57→21:45)
[2017-02-21] MEDS: METOCLOPRAMIDE 10 MG INJ IV PRN (10:57)
--- NOTE | 2017-02-21 12:52 | PN ---
Date/Time of Note Date/Time of Note DATE: 02/21/17 TIME: 12:49 Assessment/Plan VTE Prophylaxis VTE Prophylaxis Intervention: LMWH Lines/Catheters IV Catheter Type (from [facility]): Saline Lock Assessment/Plan Chief Complaint/Hosp Course Patient remains on IV antibiotics. Change in antibiotics by ID noted Problems: Assessment/Plan Cellulitis right chest Port-A-Cath site Carcinoma of left breast Obesity Hypertension Asthma Allergic rhinitis Hypothyroidism Plan: s/p Removal of merrill cath Cultures pending on IV abx, ID following Will wait for final culture results to decide for abx by ID Lovenox for DVT prophylaxis Subjective 24 Hr Interval Summary Free Text/Dictation Chart reviewed. Catheter was removed yesterday. Blood culture so far negative. Exam/Review of Systems Vital Signs Vitals Vital Signs Date Time Temp Pulse Resp B/P Pulse Ox O2 Delivery O2 Flow Rate FiO2 02/21/17 07:11 97.7 58 20 111/68 92 02/20/17 20:00 Room Air Intake and Output 02/20/17 02/20/17 02/21/17 15:00 23:00 07:00 Intake Total 250 ml 1250 ml 650 ml Output Total 405 ml 4 ml Balance 250 ml 845 ml 646 ml Exam Exam Constitutional: alert, oriented Head: atraumatic, normocephalic Neck: non-tender, supple Chest: Erythema, warmth, tenderness,Right chest dressing in place Respiratory: clear to auscultation Cardiovascular: regular rate and rhythm Gastrointestinal: nl liver, spleen, non-tender, soft Extremities: normal pulses Results Result Diagram: 02/21/17 0535 02/21/17 0535 Results 24 hrs Laboratory Tests Test 02/21/17 05:35 White Blood Count 5.2 Red Blood Count 2.76 L Hemoglobin 9.6 L Hematocrit 27.9 L Mean Corpuscular Volume 101.1 H Mean Corpuscular Hemoglobin 34.8 H Mean Corpuscular Hemoglobin Concent 34.4 Red Cell Distribution Width 12.6 Platelet Count 204 Mean Platelet Volume 10.7 H Neutrophils % 61.7 Lymphocytes % 27.6 Monocytes % 8.6 Eosinophils % 1.5 Basophils % 0.4 Nucleated Red Blood Cells % 0.0 Neutrophils # 3.2 Lymphocytes # 1.4 Monocytes # 0.5 Eosinophils # 0.1 Basophils # 0.0 Nucleated Red Blood Cells # 0.0 Prothrombin Time 12.1 L Prothrombin Time Ratio 0.9 INR International Normalized Ratio 0.90 Activated Partial Thromboplast Time 31.1 Sodium Level 142 Potassium Level 3.9 Chloride Level 101 Carbon Dioxide Level 28 Anion Gap 17 #H Blood Urea Nitrogen 16 Creatinine 0.84 Glucose Level 96 Calcium Level 9.2 Medications Medications Current Medications Acyclovir (Zovirax) 800 mg DAILY PO Last administered on 02/21/17 08:42; Admin Dose 800 MG; Start 02/17/17 at 09:00 Albuterol (Ventolin Hfa) 2 puff Q4H PRN INH WHEEZING AND SOB; Start 02/16/17 at 18:00 Baclofen (Lioresal) 10 mg DAILY PO Last administered on 02/21/17 08:42; Admin Dose 10 MG; Start 02/17/17 at 09:00 Bupropion HCl (Wellbutrin) 75 mg BID PO Last administered on 02/21/17 08:42; Admin Dose 75 MG; Start 02/16/17 at 21:00 Fluticasone Propionate (Flonase 0.05% Nasal) 1 spray DAILY NASAL Last administered on 02/21/17 08:49; Admin Dose 1 SPRAY; Start 02/17/17 at 09:00 Gabapentin (Neurontin) 300 mg TID PO Last administered on 02/21/17 12:28; Admin Dose 300 MG; Start 02/16/17 at 21:00 Meloxicam (Mobic) 15 mg DAILY PRN PO pain; Start 02/16/17 at 18:00 Montelukast Sodium (Singulair) 10 mg QHS PO Last administered on 02/20/17 21:02 ; Admin Dose 10 MG; Start 02/16/17 at 21:00 Sertraline HCl (Zoloft) 100 mg DAILY PO Last administered on 02/21/17 08:42; Admin Dose 100 MG; Start 02/17/17 at 09:00 Tramadol HCl 50 mg 50 mg Q6H PRN PO pain Last administered on 02/21/17 10:57; Admin Dose 50 MG; Start 02/16/17 at 18:00 Ceftriaxone Sodium (Rocephin) 50 ml @ 100 mls/hr Q24H IVPB Last administered on 02/20/17 18:01; Admin Dose 100 MLS/HR; Start 02/16/17 at 18:30 Enoxaparin Sodium (Lovenox) 40 mg DAILY SC Last administered on 02/21/17 08:49 ; Admin Dose 40 MG; Start 02/17/17 at 09:00 Acetaminophen/ Hydrocodone Bitart ([place] (5/325)) 1 tab Q6H PRN PO pain Last administered on 02/21/17 06:23; Admin Dose 1 TAB; Start 02/16/17 at 18:00 Ondansetron HCl (Zofran Inj) 4 mg Q6H PRN IV NAUSEA AND/OR VOMITING Last administered on 02/21/17 06:23; Admin Dose 4 MG; Start 02/16/17 at 18:00 Acetaminophen (Tylenol Tab) 650 mg Q6H PRN PO PAIN AND OR ELEVATED TEMP; Start 02/16/17 at 18:00 Pantoprazole (Protonix Tab) 40 mg DAILY@06 PO Last administered on 02/21/17 06: 15; Admin Dose 40 MG; Start 02/17/17 at 06:00 Metoclopramide HCl (Reglan) 10 mg Q6H PRN IV NAUSEA AND/OR VOMITING Last administered on 02/21/17 10:57; Admin Dose 10 MG; Start 02/17/17 at 04:10 Docusate Sodium 50 mg 50 mg BID PO Last administered on 02/21/17 08:50; Admin Dose 50 MG; Start 02/18/17 at 21:00 Vancomycin HCl (Vancocin) 250 ml @ 125 mls/hr Q12H IVPB Last administered on 10:57; Admin Dose 125 MLS/HR; Start 02/20/17 at 10:00 MAURICIO JULIEN MD Feb 21, 2017 12:51
[2017-02-21] MEDS: CEFTRIAXONE 1 GM/50 ML (PMX) 50 ML IVPB SCH (18:21)
[2017-02-21 19:31] VITALS: BP 128/58; RESP 20
[2017-02-21] MEDS: MONTELUKAST 10 MG TAB PO SCH (21:44)
[2017-02-22] MEDS: LEVOTHYROXINE 150 MCG TAB PO SCH (06:23)
[2017-02-22] MEDS: PANTOPRAZOLE (EC) 40 MG TAB PO SCH (06:23)
[2017-02-22 07:38] VITALS: BP 125/71; RESP 18
[2017-02-22] MEDS: GABAPENTIN 300 MG CAP PO SCH ×3 (08:47→21:20)
[2017-02-22] MEDS: SERTRALINE 100 MG TAB PO SCH (08:47)
[2017-02-22] MEDS: ACYCLOVIR 800 MG TAB PO SCH (08:47)
[2017-02-22] MEDS: BUPROPION 75 MG TAB PO SCH ×2 (08:47→21:20)
[2017-02-22] MEDS: DOCUSATE SODIUM 10 MG/ML (10ML CUP) PO SCH ×2 (08:48→21:20)
[2017-02-22] MEDS: BACLOFEN 10 MG TAB PO SCH (08:48)
[2017-02-22] MEDS: traMADol 50 MG TAB PO PRN ×2 (08:48→15:55)
[2017-02-22] MEDS: FLUTICASONE 0.05% 16 GM NAS SPRAY NASAL SCH (08:48)
[2017-02-22] MEDS: ENOXAPARIN 40 MG/0.4 ML SYG SC SCH (09:00)
[2017-02-22] MEDS: VANCOMYCIN 1 GM in NS 250 ML IVPB SCH ×2 (11:13→21:25)
--- NOTE | 2017-02-22 12:15 | CONS ---
Date/Time of Note Date/Time of Note DATE: 02/22/17 TIME: 12:13 Assessment/Plan Assessment/Plan Chief Complaint/Hosp Course Alert, feels good, sitting in a chair, no nausea, no vomiting, no diarrhea, no fevers Microbiology: Blood cultures remain negative catheter site culture growing staph species Antimicrobials: Vancomycin Physical examination: Obese, well-developed middle-aged white woman who is alert , in no distress. Head atraumatic, normocephalic, sclera nonicteric, bugle mucosa dry. Neck is obese, trachea midline. Chest rise symmetrical, breath sounds clear, right chest wall dressing intact. Abdomen soft, bowel tones present. Extremities without cyanosis Skin: Right sided upper chest wall catheter site wound still with some drainage. Assessment: 1. Right chest cellulitis, status post infected Port-A-Cath removal 2. Left breast cancer 3. Obesity 4. Hypertension 5. Allergy to sulfa Plan: Remain stable, continue Vanco for 2 more weeks, follow surgical recommendations. Consider PICC line placement for now instead of new Port-A- Cath Discussed with staff Problems: Consultation Date/Type/Reason Admit Date/Time Feb 16, 2017 at 17:24 Type of Consultation: Infectious disease Referring Provider: CRISTA WOODS Exam/Review of Systems Vital Signs Vitals Vital Signs Date Time Temp Pulse Resp B/P Pulse Ox O2 Delivery O2 Flow Rate FiO2 02/22/17 07:38 98.3 57 18 125/71 95 02/20/17 20:00 Room Air Intake and Output 02/21/17 02/21/17 02/22/17 15:00 23:00 07:00 Intake Total 250 ml 1250 ml 490 ml Balance 250 ml 1250 ml 490 ml Results Result Diagram: 02/21/17 0535 02/21/17 0535 Results 24 hrs Laboratory Tests Test 02/21/17 20:59 Vancomycin Level Trough 11.6 Medications Medications Current Medications Acyclovir (Zovirax) 800 mg DAILY PO Last administered on 02/22/17 08:47; Admin Dose 800 MG; Start 02/17/17 at 09:00 Albuterol (Ventolin Hfa) 2 puff Q4H PRN INH WHEEZING AND SOB; Start 02/16/17 at 18:00 Baclofen (Lioresal) 10 mg DAILY PO Last administered on 02/22/17 08:48; Admin Dose 10 MG; Start 02/17/17 at 09:00 Bupropion HCl (Wellbutrin) 75 mg BID PO Last administered on 02/22/17 08:47; Admin Dose 75 MG; Start 02/16/17 at 21:00 Fluticasone Propionate (Flonase 0.05% Nasal) 1 spray DAILY NASAL Last administered on 02/22/17 08:48; Admin Dose 1 SPRAY; Start 02/17/17 at 09:00 Gabapentin (Neurontin) 300 mg TID PO Last administered on 02/22/17 08:47; Admin Dose 300 MG; Start 02/16/17 at 21:00 Meloxicam (Mobic) 15 mg DAILY PRN PO pain; Start 02/16/17 at 18:00 Montelukast Sodium (Singulair) 10 mg QHS PO Last administered on 02/21/17 21:44 ; Admin Dose 10 MG; Start 02/16/17 at 21:00 Sertraline HCl (Zoloft) 100 mg DAILY PO Last administered on 02/22/17 08:47; Admin Dose 100 MG; Start 02/17/17 at 09:00 Tramadol HCl 50 mg 50 mg Q6H PRN PO pain Last administered on 02/22/17 08:48; Admin Dose 50 MG; Start 02/16/17 at 18:00 Ceftriaxone Sodium (Rocephin) 50 ml @ 100 mls/hr Q24H IVPB Last administered on 02/21/17 18:21; Admin Dose 100 MLS/HR; Start 02/16/17 at 18:30 Enoxaparin Sodium (Lovenox) 40 mg DAILY SC Last administered on 02/22/17 09:00 ; Admin Dose 40 MG; Start 02/17/17 at 09:00 Acetaminophen/ Hydrocodone Bitart ([place] (5/325)) 1 tab Q6H PRN PO pain Last administered on 02/21/17 21:45; Admin Dose 1 TAB; Start 02/16/17 at 18:00 Ondansetron HCl (Zofran Inj) 4 mg Q6H PRN IV NAUSEA AND/OR VOMITING Last administered on 02/21/17 06:23; Admin Dose 4 MG; Start 02/16/17 at 18:00 Acetaminophen (Tylenol Tab) 650 mg Q6H PRN PO PAIN AND OR ELEVATED TEMP; Start 02/16/17 at 18:00 Pantoprazole (Protonix Tab) 40 mg DAILY@06 PO Last administered on 02/22/17 06: 23; Admin Dose 40 MG; Start 02/17/17 at 06:00 Metoclopramide HCl (Reglan) 10 mg Q6H PRN IV NAUSEA AND/OR VOMITING Last administered on 02/21/17 10:57; Admin Dose 10 MG; Start 02/17/17 at 04:10 Docusate Sodium 50 mg 50 mg BID PO Last administered on 02/22/17 08:48; Admin Dose 50 MG; Start 02/18/17 at 21:00 Vancomycin HCl (Vancocin) 250 ml @ 125 mls/hr Q12H IVPB Last administered on 11:13; Admin Dose 125 MLS/HR; Start 02/20/17 at 10:00 KENYA LEWIS NP Feb 22, 2017 12:15
--- NOTE | 2017-02-22 12:26 | PN ---
Date/Time of Note Date/Time of Note DATE: 02/22/17 TIME: 12:23 Assessment/Plan VTE Prophylaxis VTE Prophylaxis Intervention: LMWH Lines/Catheters IV Catheter Type (from Nrs): Saline Lock Assessment/Plan Chief Complaint/Hosp Course Patient remains on IV antibiotics. Change in antibiotics by ID noted Problems: Assessment/Plan Cellulitis right chest Port-A-Cath site Carcinoma of left breast Obesity Hypertension Asthma Allergic rhinitis Hypothyroidism Plan: s/p Removal of merrill cath Cultures pending on IV abx, ID following Will wait for final culture results to decide for abx by ID Lovenox for DVT prophylaxis Will need PICC line and possible discharge to a nursing facility for completion of antibiotics. Subjective 24 Hr Interval Summary Free Text/Dictation Chart reviewed. Patient afebrile. Patient remains on IV vancomycin. Exam/Review of Systems Vital Signs Vitals Vital Signs Date Time Temp Pulse Resp B/P Pulse Ox O2 Delivery O2 Flow Rate FiO2 02/22/17 07:38 98.3 57 18 125/71 95 02/20/17 20:00 Room Air Intake and Output 02/21/17 02/21/17 02/22/17 15:00 23:00 07:00 Intake Total 250 ml 1250 ml 490 ml Balance 250 ml 1250 ml 490 ml Exam onstitutional: alert, oriented Head: atraumatic, normocephalic Neck: non-tender, supple Chest: Erythema, warmth, tenderness,Right chest dressing in place Respiratory: clear to auscultation Cardiovascular: regular rate and rhythm Gastrointestinal: nl liver, spleen, non-tender, soft Extremities: normal pulses Results Result Diagram: 02/21/17 0535 02/21/17 0535 Results 24 hrs Laboratory Tests Test 02/21/17 20:59 Vancomycin Level Trough 11.6 Medications Medications Current Medications Acyclovir (Zovirax) 800 mg DAILY PO Last administered on 02/22/17 08:47; Admin Dose 800 MG; Start 02/17/17 at 09:00 Albuterol (Ventolin Hfa) 2 puff Q4H PRN INH WHEEZING AND SOB; Start 02/16/17 at 18:00 Baclofen (Lioresal) 10 mg DAILY PO Last administered on 02/22/17 08:48; Admin Dose 10 MG; Start 02/17/17 at 09:00 Bupropion HCl (Wellbutrin) 75 mg BID PO Last administered on 02/22/17 08:47; Admin Dose 75 MG; Start 02/16/17 at 21:00 Fluticasone Propionate (Flonase 0.05% Nasal) 1 spray DAILY NASAL Last administered on 02/22/17 08:48; Admin Dose 1 SPRAY; Start 02/17/17 at 09:00 Gabapentin (Neurontin) 300 mg TID PO Last administered on 02/22/17 08:47; Admin Dose 300 MG; Start 02/16/17 at 21:00 Meloxicam (Mobic) 15 mg DAILY PRN PO pain; Start 02/16/17 at 18:00 Montelukast Sodium (Singulair) 10 mg QHS PO Last administered on 02/21/17 21:44 ; Admin Dose 10 MG; Start 02/16/17 at 21:00 Sertraline HCl (Zoloft) 100 mg DAILY PO Last administered on 02/22/17 08:47; Admin Dose 100 MG; Start 02/17/17 at 09:00 Tramadol HCl 50 mg 50 mg Q6H PRN PO pain Last administered on 02/22/17 08:48; Admin Dose 50 MG; Start 02/16/17 at 18:00 Ceftriaxone Sodium (Rocephin) 50 ml @ 100 mls/hr Q24H IVPB Last administered on 02/21/17 18:21; Admin Dose 100 MLS/HR; Start 02/16/17 at 18:30 Enoxaparin Sodium (Lovenox) 40 mg DAILY SC Last administered on 02/22/17 09:00 ; Admin Dose 40 MG; Start 02/17/17 at 09:00 Acetaminophen/ Hydrocodone Bitart ([place] (5/325)) 1 tab Q6H PRN PO pain Last administered on 02/21/17 21:45; Admin Dose 1 TAB; Start 02/16/17 at 18:00 Ondansetron HCl (Zofran Inj) 4 mg Q6H PRN IV NAUSEA AND/OR VOMITING Last administered on 02/21/17 06:23; Admin Dose 4 MG; Start 02/16/17 at 18:00 Acetaminophen (Tylenol Tab) 650 mg Q6H PRN PO PAIN AND OR ELEVATED TEMP; Start 02/16/17 at 18:00 Pantoprazole (Protonix Tab) 40 mg DAILY@06 PO Last administered on 02/22/17 06: 23; Admin Dose 40 MG; Start 02/17/17 at 06:00 Metoclopramide HCl (Reglan) 10 mg Q6H PRN IV NAUSEA AND/OR VOMITING Last administered on 02/21/17 10:57; Admin Dose 10 MG; Start 02/17/17 at 04:10 Docusate Sodium 50 mg 50 mg BID PO Last administered on 02/22/17 08:48; Admin Dose 50 MG; Start 02/18/17 at 21:00 Vancomycin HCl (Vancocin) 250 ml @ 125 mls/hr Q12H IVPB Last administered on 11:13; Admin Dose 125 MLS/HR; Start 02/20/17 at 10:00 MAURICIO JULIEN MD Feb 22, 2017 12:25
[2017-02-22 19:27] VITALS: BP 109/55; RESP 20
[2017-02-22] MEDS: MONTELUKAST 10 MG TAB PO SCH (21:20)
[2017-02-22] MEDS: HYDROCODONE/APAP (5/325) TAB PO PRN (21:24)
[2017-02-22] MEDS: ONDANSETRON 4 MG INJ IV PRN (23:44)
[2017-02-23 02:00] VITALS: BP 127/70; RESP 19
[2017-02-23] MEDS: PANTOPRAZOLE (EC) 40 MG TAB PO SCH (06:39)
[2017-02-23] MEDS: LEVOTHYROXINE 150 MCG TAB PO SCH (06:39)
[2017-02-23] MEDS: ONDANSETRON 4 MG INJ IV PRN ×2 (06:43→17:32)
[2017-02-23] MEDS: traMADol 50 MG TAB PO PRN (06:43)
[2017-02-23 08:19] VITALS: BP 125/65; RESP 20
[2017-02-23] MEDS: DOCUSATE SODIUM 10 MG/ML (10ML CUP) PO SCH ×2 (10:05→21:00)
[2017-02-23] MEDS: GABAPENTIN 300 MG CAP PO SCH ×3 (10:05→21:26)
[2017-02-23] MEDS: ACYCLOVIR 800 MG TAB PO SCH (10:05)
[2017-02-23] MEDS: BACLOFEN 10 MG TAB PO SCH (10:06)
[2017-02-23] MEDS: VANCOMYCIN 1 GM in NS 250 ML IVPB SCH ×2 (10:06→21:37)
[2017-02-23] MEDS: SERTRALINE 100 MG TAB PO SCH (10:06)
[2017-02-23] MEDS: BUPROPION 75 MG TAB PO SCH ×2 (10:06→21:26)
[2017-02-23] MEDS: FLUTICASONE 0.05% 16 GM NAS SPRAY NASAL SCH (10:12)
[2017-02-23] MEDS: ENOXAPARIN 40 MG/0.4 ML SYG SC SCH (10:23)
--- NOTE | 2017-02-23 11:14 | PN ---
Date/Time of Note Date/Time of Note DATE: 02/23/17 TIME: 11:10 Assessment/Plan VTE Prophylaxis VTE Prophylaxis Intervention: LMWH Lines/Catheters IV Catheter Type (from Nrsg): Saline Lock Assessment/Plan Assessment/Plan Cellulitis right chest Port-A-Cath site- Blood Cx grew coag neg staph Carcinoma of left breast Obesity Hypertension Asthma Allergic rhinitis Hypothyroidism Plan: s/p Removal of merrill cath ID recommending IV abx vancomycin for 13 days , will request PICC line today pt will follow up with her own Ocologoist as outpatient - after getting recommedation from ID, we will reqeust D/c home with home health vs SNF for IV abx Lovenox for DVT prophylaxis Exam/Review of Systems Vital Signs Vitals Vital Signs Date Time Temp Pulse Resp B/P Pulse Ox O2 Delivery O2 Flow Rate FiO2 02/23/17 08:19 98.5 61 20 125/65 95 02/20/17 20:00 Room Air Intake and Output 02/22/17 02/22/17 02/23/17 15:00 23:00 07:00 Intake Total 250 ml 1760 ml 970 ml Balance 250 ml 1760 ml 970 ml Exam Constitutional: alert, oriented Head: atraumatic, normocephalic Neck: non-tender, supple Chest: Erythema, warmth, tenderness,Right chest dressing in place Respiratory: clear to auscultation Cardiovascular: regular rate and rhythm Gastrointestinal: nl liver, spleen, non-tender, soft Extremities: normal pulses Results Result Diagram: 02/21/17 0535 02/21/17 0535 Medications Medications Current Medications Acyclovir (Zovirax) 800 mg DAILY PO Last administered on 02/23/17 10:05; Admin Dose 800 MG; Start 02/17/17 at 09:00 Albuterol (Ventolin Hfa) 2 puff Q4H PRN INH WHEEZING AND SOB; Start 02/16/17 at 18:00 Baclofen (Lioresal) 10 mg DAILY PO Last administered on 02/23/17 10:06; Admin Dose 10 MG; Start 02/17/17 at 09:00 Bupropion HCl (Wellbutrin) 75 mg BID PO Last administered on 02/23/17 10:06; Admin Dose 75 MG; Start 02/16/17 at 21:00 Fluticasone Propionate (Flonase 0.05% Nasal) 1 spray DAILY NASAL Last administered on 02/23/17 10:12; Admin Dose 1 SPRAY; Start 02/17/17 at 09:00 Gabapentin (Neurontin) 300 mg TID PO Last administered on 02/23/17 10:05; Admin Dose 300 MG; Start 02/16/17 at 21:00 Meloxicam (Mobic) 15 mg DAILY PRN PO pain; Start 02/16/17 at 18:00 Montelukast Sodium (Singulair) 10 mg QHS PO Last administered on 02/22/17 21:20 ; Admin Dose 10 MG; Start 02/16/17 at 21:00 Sertraline HCl (Zoloft) 100 mg DAILY PO Last administered on 02/23/17 10:06; Admin Dose 100 MG; Start 02/17/17 at 09:00 Tramadol HCl (Ultram) 50 mg Q6H PRN PO pain Last administered on 02/23/17 06:43 ; Admin Dose 50 MG; Start 02/16/17 at 18:00 Enoxaparin Sodium (Lovenox) 40 mg DAILY SC Last administered on 02/23/17 10:23 ; Admin Dose 40 MG; Start 02/17/17 at 09:00 Acetaminophen/ Hydrocodone Bitart ([place] (5/325)) 1 tab Q6H PRN PO pain Last administered on 02/22/17 21:24; Admin Dose 1 TAB; Start 02/16/17 at 18:00 Ondansetron HCl (Zofran Inj) 4 mg Q6H PRN IV NAUSEA AND/OR VOMITING Last administered on 02/23/17 06:43; Admin Dose 4 MG; Start 02/16/17 at 18:00 Acetaminophen (Tylenol Tab) 650 mg Q6H PRN PO PAIN AND OR ELEVATED TEMP; Start 02/16/17 at 18:00 Pantoprazole (Protonix Tab) 40 mg DAILY@06 PO Last administered on 02/23/17 06: 39; Admin Dose 40 MG; Start 02/17/17 at 06:00 Metoclopramide HCl (Reglan) 10 mg Q6H PRN IV NAUSEA AND/OR VOMITING Last administered on 02/21/17 10:57; Admin Dose 10 MG; Start 02/17/17 at 04:10 Docusate Sodium 50 mg 50 mg BID PO Last administered on 02/23/17 10:05; Admin Dose 50 MG; Start 02/18/17 at 21:00 Vancomycin HCl (Vancocin) 250 ml @ 125 mls/hr Q12H IVPB Last administered on 10:06; Admin Dose 125 MLS/HR; Start 02/20/17 at 10:00 ELIZABETH VELAZQUEZ MD Feb 23, 2017 11:14
[2017-02-23] MEDS: HYDROCODONE/APAP (5/325) TAB PO PRN ×2 (11:30→21:27)
[2017-02-23] MEDS ORDERED: LIDOCAINE 1% (MPF) 5 ML VIAL SC ONE ×2 (11:30→15:30)
--- NOTE | 2017-02-23 12:51 | CONS ---
Date/Time of Note Date/Time of Note DATE: 02/23/17 TIME: 12:50 Assessment/Plan Assessment/Plan Chief Complaint/Hosp Course Sleeping, status post morphine for headache, looks comfortable, afebrile Microbiology: Blood cultures remain negative catheter site culture growing staph species Antimicrobials: Vancomycin Physical examination: Obese, well-developed middle-aged white woman who is in no distress. Head atraumatic, normocephalic, sclera nonicteric, bugle mucosa dry. Neck is obese, trachea midline. Chest rise symmetrical, breath sounds clear, right chest wall dressing intact. Abdomen soft, bowel tones present. Extremities without cyanosis Skin: Right sided upper chest wall catheter site wound still with some drainage. Assessment: 1. Right chest cellulitis, status post infected Port-A-Cath removal 2. Left breast cancer 3. Obesity 4. Hypertension 5. Allergy to sulfa Plan: Remain stable, continue Vanco for 13 days, local wound care per surgical recommendations. Consider PICC line placement for now instead of new Port-A- Cath Discussed with staff Problems: Consultation Date/Type/Reason Admit Date/Time Feb 16, 2017 at 17:24 Type of Consultation: Infectious disease Referring Provider: CRISTA WOODS Exam/Review of Systems Vital Signs Vitals Vital Signs Date Time Temp Pulse Resp B/P Pulse Ox O2 Delivery O2 Flow Rate FiO2 02/23/17 08:19 98.5 61 20 125/65 95 02/20/17 20:00 Room Air Intake and Output 02/22/17 02/22/17 02/23/17 15:00 23:00 07:00 Intake Total 250 ml 1760 ml 970 ml Balance 250 ml 1760 ml 970 ml Results Result Diagram: 02/21/17 0535 02/21/17 0535 Medications Medications Current Medications Acyclovir (Zovirax) 800 mg DAILY PO Last administered on 02/23/17 10:05; Admin Dose 800 MG; Start 02/17/17 at 09:00 Albuterol (Ventolin Hfa) 2 puff Q4H PRN INH WHEEZING AND SOB; Start 02/16/17 at 18:00 Baclofen (Lioresal) 10 mg DAILY PO Last administered on 02/23/17 10:06; Admin Dose 10 MG; Start 02/17/17 at 09:00 Bupropion HCl (Wellbutrin) 75 mg BID PO Last administered on 02/23/17 10:06; Admin Dose 75 MG; Start 02/16/17 at 21:00 Fluticasone Propionate (Flonase 0.05% Nasal) 1 spray DAILY NASAL Last administered on 02/23/17 10:12; Admin Dose 1 SPRAY; Start 02/17/17 at 09:00 Gabapentin (Neurontin) 300 mg TID PO Last administered on 02/23/17 10:05; Admin Dose 300 MG; Start 02/16/17 at 21:00 Meloxicam (Mobic) 15 mg DAILY PRN PO pain; Start 02/16/17 at 18:00 Montelukast Sodium (Singulair) 10 mg QHS PO Last administered on 02/22/17 21:20 ; Admin Dose 10 MG; Start 02/16/17 at 21:00 Sertraline HCl (Zoloft) 100 mg DAILY PO Last administered on 02/23/17 10:06; Admin Dose 100 MG; Start 02/17/17 at 09:00 Tramadol HCl (Ultram) 50 mg Q6H PRN PO pain Last administered on 02/23/17 06:43 ; Admin Dose 50 MG; Start 02/16/17 at 18:00 Enoxaparin Sodium (Lovenox) 40 mg DAILY SC Last administered on 02/23/17 10:23 ; Admin Dose 40 MG; Start 02/17/17 at 09:00 Acetaminophen/ Hydrocodone Bitart ([place] (5/325)) 1 tab Q6H PRN PO pain Last administered on 02/23/17 11:30; Admin Dose 1 TAB; Start 02/16/17 at 18:00 Ondansetron HCl (Zofran Inj) 4 mg Q6H PRN IV NAUSEA AND/OR VOMITING Last administered on 02/23/17 06:43; Admin Dose 4 MG; Start 02/16/17 at 18:00 Acetaminophen (Tylenol Tab) 650 mg Q6H PRN PO PAIN AND OR ELEVATED TEMP; Start 02/16/17 at 18:00 Pantoprazole (Protonix Tab) 40 mg DAILY@06 PO Last administered on 02/23/17 06: 39; Admin Dose 40 MG; Start 02/17/17 at 06:00 Metoclopramide HCl (Reglan) 10 mg Q6H PRN IV NAUSEA AND/OR VOMITING Last administered on 02/21/17 10:57; Admin Dose 10 MG; Start 02/17/17 at 04:10 Docusate Sodium 50 mg 50 mg BID PO Last administered on 02/23/17 10:05; Admin Dose 50 MG; Start 02/18/17 at 21:00 Vancomycin HCl (Vancocin) 250 ml @ 125 mls/hr Q12H IVPB Last administered on 10:06; Admin Dose 125 MLS/HR; Start 02/20/17 at 10:00 KENYA LEWIS NP Feb 23, 2017 12:51
--- NOTE | 2017-02-23 16:39 | RADRPT ---
PROCEDURE: XR Chest. CLINICAL INDICATION: Check PICC line position. TECHNIQUE: Single frontal view. COMPARISON: 02/18/2017. FINDINGS: There is a left arm PICC line with the tip in the lower superior vena cava. The lungs are clear. The heart is mildly enlarged. There is no pleural effusion. There is no pneumothorax. IMPRESSION: 1. Satisfactory position of left arm PICC line. 2. Mild cardiomegaly. 3. Otherwise normal chest radiograph. RPTAT: QQ .Micky Calvillo MD, MD Date Time Electronically viewed and signed by .Micky Calvillo MD, MD on 02/23/2017 16:39 .R/
[2017-02-23 20:40] VITALS: BP 123/60; RESP 20
[2017-02-23] MEDS: MONTELUKAST 10 MG TAB PO SCH (21:26)
[2017-02-24 03:07] VITALS: BP 98/53; RESP 20
[2017-02-24 06:08] LABS: ADD SCAN DIFF NO
[2017-02-24 06:16] LABS: BASOPHILS % 0.5 % (0.0-2.0); EOSINOPHILS # 0.1 10^3/ul (0.0-0.5); EOSINOPHILS % 2.8 % (0.0-7.0); HEMATOCRIT 27.6 % (37.0-47.0); HEMOGLOBIN 9.4 g/dl (12.0-16.0); LYMPHOCYTES # 1.6 10^3/ul (0.8-2.9); LYMPHOCYTES % 41.3 % (15.0-51.0); MEAN CORPUSCULAR HEMOGLOBIN 34.7 pg (29.0-33.0); MEAN CORPUSCULAR HGB CONC 34.1 g/dl (32.0-37.0); MEAN CORPUSCULAR VOLUME 101.8 fl (82.0-101.0); MEAN PLATELET VOLUME 10.3 fl (7.4-10.4); MONOCYTE # 0.3 10^3/ul (0.3-0.9); MONOCYTES % 8.6 % (0.0-11.0); NEUTROPHIL # 1.9 10^3/ul (1.6-7.5); NEUTROPHILS % 46.8 % (39.0-77.0); PLATELET COUNT 239 10^3/UL (140-415); RED BLOOD COUNT 2.71 10^6/ul (4.20-5.40); RED CELL DISTRIBUTION WIDTH 12.9 % (11.5-14.5)
[2017-02-24] MEDS: PANTOPRAZOLE (EC) 40 MG TAB PO SCH (06:26)
[2017-02-24] MEDS: LEVOTHYROXINE 150 MCG TAB PO SCH (06:27)
[2017-02-24 06:35] LABS: INR 0.93; PROTIME 12.5 Sec (12.2-14.2)
[2017-02-24 06:36] LABS: PARTIAL THROMBOPLASTIN TIME 32.3 Sec (25.0-35.0)
[2017-02-24 06:55] LABS: CALCIUM 9.1 mg/dl (8.4-10.2); CREATININE 0.87 mg/dl (0.44-1.00); POTASSIUM 3.9 mmol/L (3.5-5.1)
[2017-02-24 08:24] VITALS: BP 138/63; RESP 20
[2017-02-24] MEDS: DOCUSATE SODIUM 10 MG/ML (10ML CUP) PO SCH ×2 (09:00→20:12)
[2017-02-24] MEDS: BUPROPION 75 MG TAB PO SCH ×2 (09:13→20:11)
[2017-02-24] MEDS: ACYCLOVIR 800 MG TAB PO SCH (09:13)
[2017-02-24] MEDS: BACLOFEN 10 MG TAB PO SCH (09:13)
[2017-02-24] MEDS: GABAPENTIN 300 MG CAP PO SCH ×3 (09:13→20:11)
[2017-02-24] MEDS: SERTRALINE 100 MG TAB PO SCH (09:13)
[2017-02-24] MEDS: traMADol 50 MG TAB PO PRN ×2 (09:13→15:17)
[2017-02-24] MEDS: FLUTICASONE 0.05% 16 GM NAS SPRAY NASAL SCH (09:14)
[2017-02-24] MEDS: VANCOMYCIN 1 GM in NS 250 ML IVPB SCH ×2 (09:14→22:42)
[2017-02-24] MEDS: ENOXAPARIN 40 MG/0.4 ML SYG SC SCH (09:28)
--- NOTE | 2017-02-24 12:47 | PDOCDIS ---
Discharge Instructions DIAGNOSIS Discharge Diagnosis Right chest wall cellulitis. CONDITION Patient Condition: Stable HOME CARE INSTRUCTIONS: Diet Instructions: RegularSpecial Diet: regular OTHER ORDERS: Other Orders: 1. Complete the course of antibiotics [Home health to be arranged]. 2. Regular diet as tolerated. 3. Change right chest wall dressings daily. 4. Follow-up with your oncologist as scheduled. 5. Go to the nearest emergency room if you have persistent fevers, significant drainage from the surgical site, or other indications that make you suspect worsening of right chest wall infection DAVON NORTON NP Feb 24, 2017 12:47
[2017-02-24] MEDS: ONDANSETRON 4 MG INJ IV PRN ×2 (13:07→20:13)
--- NOTE | 2017-02-24 14:44 | DS ---
Date/Time of Note Date/Time of Note DATE: 02/24/17 TIME: 14:41 Discharge Summary Admission/Discharge Info Admit Date/Time Feb 16, 2017 at 17:24 Discharge Date/Time Discharge Diagnosis 1. Right chest wall cellulitis at the insertion site of Port-A-Cath. Status post removal of Port-A-Cath. 2. Carcinoma the left breast. 3. Essential hypertension. 4. Asthma. 5. Hypothyroidism. 6. Allergic rhinitis. 7. Obesity. 8. Macrocytic anemia. Patient Condition: Stable Consults 1. Zaire Hernandez MD, Infectious Diseases. Procedures 02/18/2017. Port-A-Cath removal. 02/23/2017. Left upper extremity PICC line placement. Bilateral Lower Extremity Venous Doppler Study IMPRESSION: No sonographic evidence for deep venous thrombosis in the bilateral lower extremities. Hx of Present Illness PRESENTING COMPLAINT: R sided chest pain HISTORY OF PRESENTING COMPLAINT: This is a 51-year-old female history of breast cancer on chemotherapy with recent neutropenia Neupogen who presents for an infected Port-A-Cath to the right chest. She has been given Keflex as an outpatient with only mild improvement. Her surgeon Dr. Coon, sent the patient to the emergency room for inpatient hospitalization and IV antibiotics. She does describes a moderate pain is worse with movement, subjective fevers. No shortness of breath. She did notice erythema warmth and induration to the chest overlying the Port-A-Cath. Hospital Course The patient was admitted to inpatient setting. The patient was started on empiric antibiotics. Pancultures were obtained. The patient's right chest wall catheter site culture showed positive coagulase-negative Staphylococcus. The patient was maintained on antibiotics as per infectious diseases. The patient had no evidence of any septic shock. The patient's right chest wall Port-A-Cath was removed by interventional radiology on 02/18/2017. The patient had a PICC line inserted on 02/23/2017 and infectious diseases instructed to discharge patient home on home IV antibiotics to finish a course of of antibiotics with the last today being 03/08/2017. The patient has underlying asthma. The patient was maintained on inhaled bronchodilators and the patient did not have any evidence of asthma exacerbation. She has underlying hypothyroidism. The patient was maintained on Synthroid for the same. Patient has left breast cancer and currently getting chemotherapy as outpatient. Patient also has underlying history of essential hypertension. The patient's blood pressure remained stable off antihypertensives throughout the hospital course. The patient had a stable hospital course and the patient is stable to be discharged home on IV antibiotics to complete a course for the last day being . Discharge Instructions 1. Complete the course of antibiotics [Home health to be arranged]. 2. Regular diet as tolerated. 3. Change right chest wall dressings daily. 4. Follow-up with your oncologist as scheduled. 5. Go to the nearest emergency room if you have persistent fevers, significant drainage from the surgical site, or other indications that make you suspect worsening of right chest wall infection. The patient verbalized understanding of her discharge instructions. Case discussed with Dr. Golden. Home Meds Reported Medications Docusate Sodium* (Colace*) 100 Mg Capsule, 50 MG PO BID, #60 CAP 01/02/17 Montelukast Sodium* (Singulair*) 10 Mg Tablet, 10 MG PO QHS, #30 TAB 01/02/17 Cetirizine Hcl* (Zyrtec*) 10 Mg Capsule, 10 MG PO DAILY, TAB 01/02/17 Albuterol Sulfate* (Proair HFA*) 8.5 Gm Hfa.aer.ad, 2 PUFF INH Q4H Y for WHEEZING AND SOB, #1 INHALER 01/02/17 Acyclovir* (Acyclovir*) 800 Mg Tablet, 800 MG PO DAILY, TAB 01/02/17 Levothyroxine Sodium* (Synthroid*) 150 Mcg Tablet, 150 MCG PO BEFORE BREAKFAST, #30 TAB 01/02/17 Fluticasone Propionate* (Fluticasone Propionate* Nasal) 50 Mcg/[place] - 16 Gm [place].susp, 1 SPRAY NASAL DAILY, #1 BOTTLE TO EACH NOSTRIL 01/02/17 Sertraline Hcl* (Sertraline Hcl*) 100 Mg Tablet, 100 MG PO DAILY, #30 TAB 01/02/17 Flunisolide (Aerospan) 8.9 Gm Hfa.aer.ad, 2 PUFFS INH BID, #1 EA 01/02/17 Tramadol Hcl* (Ultram*) 50 Mg Tablet, 50 MG PO DAILY Y for PAIN, TAB 01/02/17 Gabapentin* (Gabapentin*) 300 Mg Capsule, 300 MG PO TID, #90 CAP 01/02/17 Meloxicam* (Mobic*) 15 Mg Tablet, 15 MG PO DAILY, #30 TAB 01/02/17 Bupropion Hcl (Wellbutrin) 75 Mg Tablet, 75 MG PO BID, TAB 01/02/17 Baclofen* (Baclofen*) 10 Mg Tablet, 10 MG PO DAILY, TAB 01/02/17 Follow-up Plan Follow-up with your primary care physician in 7 days. Follow-up with your oncologist as scheduled. Primary Care Provider [facility] Time spent on discharge: > 30 minutes Pending Labs Laboratory Tests Test 02/24/17 05:52 White Blood Count 4.010^3/ul (4.8-10.8) Red Blood Count 2.7110^6/ul (4.20-5.40) Hemoglobin 9.4g/dl (12.0-16.0) Hematocrit 27.6% (37.0-47.0) Mean Corpuscular Volume 101.8fl (82.0-101.0) Mean Corpuscular Hemoglobin 34.7pg (29.0-33.0) Mean Corpuscular Hemoglobin Concent 34.1g/dl (32.0-37.0) Red Cell Distribution Width 12.9% (11.5-14.5) Platelet Count 70230^3/UL (140-415) Mean Platelet Volume 10.3fl (7.4-10.4) Neutrophils % 46.8% (39.0-77.0) Lymphocytes % 41.3% (15.0-51.0) Monocytes % 8.6% (0.0-11.0) Eosinophils % 2.8% (0.0-7.0) Basophils % 0.5% (0.0-2.0) Nucleated Red Blood Cells % 0.0/100WBC (0.0-0.0) Neutrophils # 1.910^3/ul (1.6-7.5) Lymphocytes # 1.610^3/ul (0.8-2.9) Monocytes # 0.310^3/ul (0.3-0.9) Eosinophils # 0.110^3/ul (0.0-0.5) Basophils # 0.010^3/ul (0.0-0.1) Nucleated Red Blood Cells # 0.010^3/ul (0.0-0.0) Prothrombin Time 12.5Sec (12.2-14.2) Prothrombin Time Ratio 1.0 INR International Normalized Ratio 0.93 Activated Partial Thromboplast Time 32.3Sec (25.0-35.0) Sodium Level 143mmol/L (135-144) Potassium Level 3.9mmol/L (3.5-5.1) Chloride Level 100mmol/L (97-110) Carbon Dioxide Level 30mmol/L (21-31) Anion Gap 17 (8-16) Blood Urea Nitrogen 15mg/dl (7-20) Creatinine 0.87mg/dl (0.44-1.00) Glucose Level 94mg/dl (70-220) Calcium Level 9.1mg/dl (8.4-10.2) DAVON NORTON NP Feb 24, 2017 14:44
--- NOTE | 2017-02-24 15:22 | PN ---
Date/Time of Note Date/Time of Note DATE: 02/24/17 TIME: 15:18 Assessment/Plan VTE Prophylaxis VTE Prophylaxis Intervention: SCD's Lines/Catheters IV Catheter Type (from Nrsg): PICC Line Central line still needed: Yes Assessment/Plan Chief Complaint/Hosp Course 1. Right chest wall cellulitis at the insertion site of Port-A-Cath. Status post removal of Port-A-Cath. Antibiotics as per ID. 2. Carcinoma the left breast. Undergoing outpatient chemotherapy. 3. Essential hypertension. Well controlled off antihypertensives. 4. Asthma. No evidence of exacerbation. 5. Hypothyroidism. Continue Synthroid. 6. Allergic rhinitis. Stable. 7. Obesity. 8. Macrocytic anemia. Monitor H&H closely. 9. Fluids, electrolytes, and nutrition. Regular diet. 10. DVT prophylaxis. Bilateral SCDs. 11. Gastrointestinal prophylaxis. Proton pump inhibitors. 12. Plan. Continue current antimicrobials. Plan to discharge patient home on IV antibiotics after home health is arranged. Case discussed with Dr. Golden. Problems: Subjective 24 Hr Interval Summary Free Text/Dictation The patient remains afebrile. Denies any pain. Exam/Review of Systems Vital Signs Vitals Vital Signs Date Time Temp Pulse Resp B/P Pulse Ox O2 Delivery O2 Flow Rate FiO2 02/24/17 08:24 98.1 55 20 138/63 96 02/20/17 20:00 Room Air Intake and Output 02/23/17 02/23/17 02/24/17 15:00 23:00 07:00 Intake Total 250 ml 1600 ml 750 ml Balance 250 ml 1600 ml 750 ml Exam General: Obese 51 year-old female lying in bed in no apparent distress. HEENT: Normocephalic, atraumatic. Eyes: Anicteric sclerae, conjunctivae clear. ENT: Nasal septum midline, oral mucosa moist. Neck supple, no JVD noticed. Respiratory: Bilaterally clear breath sounds. No use of accessory muscles of respiration. No adventitious breath sounds. Cardiovascular: S1, S2 heard. No murmurs or gallops. Abdomen: Soft, nontender, and nondistended. Bowel sounds positive in all 4 quadrants. Genitourinary: Deferred. Extremities: No cyanosis, no clubbing, no edema. Peripheral pulses palpable. Neurologic: Cranial nerves II through XII grossly intact. The patient is awake, alert, and oriented. Skin: Normal skin turgor. Right chest wall Port-A-Cath incision site has 2 sutures with surrounding erythema and minimal tenderness Results Result Diagram: 02/24/17 0552 02/24/17 0552 Results 24 hrs Laboratory Tests Test 02/24/17 05:52 White Blood Count 4.0 #L Red Blood Count 2.71 L Hemoglobin 9.4 L Hematocrit 27.6 L Mean Corpuscular Volume 101.8 H Mean Corpuscular Hemoglobin 34.7 H Mean Corpuscular Hemoglobin Concent 34.1 Red Cell Distribution Width 12.9 Platelet Count 239 Mean Platelet Volume 10.3 Neutrophils % 46.8 Lymphocytes % 41.3 Monocytes % 8.6 Eosinophils % 2.8 Basophils % 0.5 Nucleated Red Blood Cells % 0.0 Neutrophils # 1.9 Lymphocytes # 1.6 Monocytes # 0.3 Eosinophils # 0.1 Basophils # 0.0 Nucleated Red Blood Cells # 0.0 Prothrombin Time 12.5 Prothrombin Time Ratio 1.0 INR International Normalized Ratio 0.93 Activated Partial Thromboplast Time 32.3 Sodium Level 143 Potassium Level 3.9 Chloride Level 100 Carbon Dioxide Level 30 Anion Gap 17 H Blood Urea Nitrogen 15 Creatinine 0.87 Glucose Level 94 Calcium Level 9.1 Medications Medications Current Medications Acyclovir (Zovirax) 800 mg DAILY PO Last administered on 02/24/17 09:13; Admin Dose 800 MG; Start 02/17/17 at 09:00 Albuterol (Ventolin Hfa) 2 puff Q4H PRN INH WHEEZING AND SOB; Start 02/16/17 at 18:00 Baclofen (Lioresal) 10 mg DAILY PO Last administered on 02/24/17 09:13; Admin Dose 10 MG; Start 02/17/17 at 09:00 Bupropion HCl (Wellbutrin) 75 mg BID PO Last administered on 02/24/17 09:13; Admin Dose 75 MG; Start 02/16/17 at 21:00 Fluticasone Propionate (Flonase 0.05% Nasal) 1 spray DAILY NASAL Last administered on 02/24/17 09:14; Admin Dose 1 SPRAY; Start 02/17/17 at 09:00 Gabapentin (Neurontin) 300 mg TID PO Last administered on 02/24/17 13:04; Admin Dose 300 MG; Start 02/16/17 at 21:00 Meloxicam (Mobic) 15 mg DAILY PRN PO pain; Start 02/16/17 at 18:00 Montelukast Sodium (Singulair) 10 mg QHS PO Last administered on 02/23/17 21:26 ; Admin Dose 10 MG; Start 02/16/17 at 21:00 Sertraline HCl (Zoloft) 100 mg DAILY PO Last administered on 02/24/17 09:13; Admin Dose 100 MG; Start 02/17/17 at 09:00 Tramadol HCl (Ultram) 50 mg Q6H PRN PO pain Last administered on 02/24/17 15:17 ; Admin Dose 50 MG; Start 02/16/17 at 18:00 Enoxaparin Sodium (Lovenox) 40 mg DAILY SC Last administered on 02/24/17 09:28 ; Admin Dose 40 MG; Start 02/17/17 at 09:00 Acetaminophen/ Hydrocodone Bitart ([place] (5/325)) 1 tab Q6H PRN PO pain Last administered on 02/23/17 21:27; Admin Dose 1 TAB; Start 02/16/17 at 18:00 Ondansetron HCl (Zofran Inj) 4 mg Q6H PRN IV NAUSEA AND/OR VOMITING Last administered on 02/24/17 13:07; Admin Dose 4 MG; Start 02/16/17 at 18:00 Acetaminophen (Tylenol Tab) 650 mg Q6H PRN PO PAIN AND OR ELEVATED TEMP; Start 02/16/17 at 18:00 Pantoprazole (Protonix Tab) 40 mg DAILY@06 PO Last administered on 02/24/17 06: 26; Admin Dose 40 MG; Start 02/17/17 at 06:00 Metoclopramide HCl (Reglan) 10 mg Q6H PRN IV NAUSEA AND/OR VOMITING Last administered on 02/21/17 10:57; Admin Dose 10 MG; Start 02/17/17 at 04:10 Docusate Sodium 50 mg 50 mg BID PO Last administered on 02/23/17 10:05; Admin Dose 50 MG; Start 02/18/17 at 21:00 Vancomycin HCl (Vancocin) 250 ml @ 125 mls/hr Q12H IVPB Last administered on 09:14; Admin Dose 125 MLS/HR; Start 02/20/17 at 10:00 DAVON NORTON NP Feb 24, 2017 15:22
--- NOTE | 2017-02-24 16:12 | CONS ---
Date/Time of Note Date/Time of Note DATE: 02/24/17 TIME: 16:11 Assessment/Plan Assessment/Plan Chief Complaint/Hosp Course Alert, feels good,, no nausea vomiting diarrhea, looks comfortable, afebrile Microbiology: Blood cultures remain negative catheter site culture growing staph species Antimicrobials: Vancomycin Physical examination: Obese, well-developed middle-aged white woman who is in no distress. Head atraumatic, normocephalic, sclera nonicteric, bugle mucosa dry. Neck is obese, trachea midline. Chest rise symmetrical, breath sounds clear, right chest wall dressing intact. Abdomen soft, bowel tones present. Extremities without cyanosis Skin: Right sided upper chest wall wound open with some drainage. Assessment: 1. Right chest cellulitis, status post infected Port-A-Cath removal 2. Left breast cancer 3. Obesity 4. Hypertension 5. Allergy to sulfa 6. Left upper extremity PICC Plan: Remain stable, repeat wound culture, continue Vanco, local wound care per surgical recommendations. Discussed with patient Problems: Consultation Date/Type/Reason Admit Date/Time Feb 16, 2017 at 17:24 Type of Consultation: Infectious disease Referring Provider: CRISTA WOODS Exam/Review of Systems Vital Signs Vitals Vital Signs Date Time Temp Pulse Resp B/P Pulse Ox O2 Delivery O2 Flow Rate FiO2 02/24/17 08:24 98.1 55 20 138/63 96 02/20/17 20:00 Room Air Intake and Output 02/23/17 02/23/17 02/24/17 15:00 23:00 07:00 Intake Total 250 ml 1600 ml 750 ml Balance 250 ml 1600 ml 750 ml Results Result Diagram: 02/24/17 0552 02/24/17 0552 Results 24 hrs Laboratory Tests Test 02/24/17 05:52 White Blood Count 4.0 #L Red Blood Count 2.71 L Hemoglobin 9.4 L Hematocrit 27.6 L Mean Corpuscular Volume 101.8 H Mean Corpuscular Hemoglobin 34.7 H Mean Corpuscular Hemoglobin Concent 34.1 Red Cell Distribution Width 12.9 Platelet Count 239 Mean Platelet Volume 10.3 Neutrophils % 46.8 Lymphocytes % 41.3 Monocytes % 8.6 Eosinophils % 2.8 Basophils % 0.5 Nucleated Red Blood Cells % 0.0 Neutrophils # 1.9 Lymphocytes # 1.6 Monocytes # 0.3 Eosinophils # 0.1 Basophils # 0.0 Nucleated Red Blood Cells # 0.0 Prothrombin Time 12.5 Prothrombin Time Ratio 1.0 INR International Normalized Ratio 0.93 Activated Partial Thromboplast Time 32.3 Sodium Level 143 Potassium Level 3.9 Chloride Level 100 Carbon Dioxide Level 30 Anion Gap 17 H Blood Urea Nitrogen 15 Creatinine 0.87 Glucose Level 94 Calcium Level 9.1 Medications Medications Current Medications Acyclovir (Zovirax) 800 mg DAILY PO Last administered on 02/24/17 09:13; Admin Dose 800 MG; Start 02/17/17 at 09:00 Albuterol (Ventolin Hfa) 2 puff Q4H PRN INH WHEEZING AND SOB; Start 02/16/17 at 18:00 Baclofen (Lioresal) 10 mg DAILY PO Last administered on 02/24/17 09:13; Admin Dose 10 MG; Start 02/17/17 at 09:00 Bupropion HCl (Wellbutrin) 75 mg BID PO Last administered on 02/24/17 09:13; Admin Dose 75 MG; Start 02/16/17 at 21:00 Fluticasone Propionate (Flonase 0.05% Nasal) 1 spray DAILY NASAL Last administered on 02/24/17 09:14; Admin Dose 1 SPRAY; Start 02/17/17 at 09:00 Gabapentin (Neurontin) 300 mg TID PO Last administered on 02/24/17 13:04; Admin Dose 300 MG; Start 02/16/17 at 21:00 Meloxicam (Mobic) 15 mg DAILY PRN PO pain; Start 02/16/17 at 18:00 Montelukast Sodium (Singulair) 10 mg QHS PO Last administered on 02/23/17 21:26 ; Admin Dose 10 MG; Start 02/16/17 at 21:00 Sertraline HCl (Zoloft) 100 mg DAILY PO Last administered on 02/24/17 09:13; Admin Dose 100 MG; Start 02/17/17 at 09:00 Tramadol HCl (Ultram) 50 mg Q6H PRN PO pain Last administered on 02/24/17 15:17 ; Admin Dose 50 MG; Start 02/16/17 at 18:00 Enoxaparin Sodium (Lovenox) 40 mg DAILY SC Last administered on 02/24/17 09:28 ; Admin Dose 40 MG; Start 02/17/17 at 09:00 Acetaminophen/ Hydrocodone Bitart ([place] (5/325)) 1 tab Q6H PRN PO pain Last administered on 02/23/17 21:27; Admin Dose 1 TAB; Start 02/16/17 at 18:00 Ondansetron HCl (Zofran Inj) 4 mg Q6H PRN IV NAUSEA AND/OR VOMITING Last administered on 02/24/17 13:07; Admin Dose 4 MG; Start 02/16/17 at 18:00 Acetaminophen (Tylenol Tab) 650 mg Q6H PRN PO PAIN AND OR ELEVATED TEMP; Start 02/16/17 at 18:00 Pantoprazole (Protonix Tab) 40 mg DAILY@06 PO Last administered on 02/24/17 06: 26; Admin Dose 40 MG; Start 02/17/17 at 06:00 Metoclopramide HCl (Reglan) 10 mg Q6H PRN IV NAUSEA AND/OR VOMITING Last administered on 02/21/17 10:57; Admin Dose 10 MG; Start 02/17/17 at 04:10 Docusate Sodium 50 mg 50 mg BID PO Last administered on 02/23/17 10:05; Admin Dose 50 MG; Start 02/18/17 at 21:00 Vancomycin HCl (Vancocin) 250 ml @ 125 mls/hr Q12H IVPB Last administered on 09:14; Admin Dose 125 MLS/HR; Start 02/20/17 at 10:00 KENYA LEWIS NP Feb 24, 2017 16:12
[2017-02-24] MEDS: MONTELUKAST 10 MG TAB PO SCH (20:11)
[2017-02-24 20:22] VITALS: BP 151/75; PULSE 62; RESP 18
[2017-02-24] MEDS: HYDROCODONE/APAP (5/325) TAB PO PRN (22:42)
[2017-02-25 02:00] VITALS: BP 122/52; PULSE 64; RESP 19
[2017-02-25] MEDS: LEVOTHYROXINE 150 MCG TAB PO SCH (06:19)
[2017-02-25] MEDS: PANTOPRAZOLE (EC) 40 MG TAB PO SCH (06:19)
[2017-02-25 07:53] VITALS: BP 117/61; RESP 18
[2017-02-25] MEDS: ACYCLOVIR 800 MG TAB PO SCH (08:25)
[2017-02-25] MEDS: BACLOFEN 10 MG TAB PO SCH (08:25)
[2017-02-25] MEDS: GABAPENTIN 300 MG CAP PO SCH (08:25)
[2017-02-25] MEDS: FLUTICASONE 0.05% 16 GM NAS SPRAY NASAL SCH (08:26)
[2017-02-25] MEDS: BUPROPION 75 MG TAB PO SCH (08:26)
[2017-02-25] MEDS: SERTRALINE 100 MG TAB PO SCH (08:26)
[2017-02-25] MEDS: ENOXAPARIN 40 MG/0.4 ML SYG SC SCH (08:31)
[2017-02-25] MEDS: traMADol 50 MG TAB PO PRN (08:32)
[2017-02-25] MEDS: DOCUSATE SODIUM 10 MG/ML (10ML CUP) PO SCH (08:34)
--- NOTE | 2017-02-25 13:36 | DS ---
Date/Time of Note Date/Time of Note DATE: 02/25/17 TIME: 13:32 Discharge Summary Admission/Discharge Info Admit Date/Time Feb 16, 2017 at 17:24 Discharge Date/Time Feb 25, 2017 at 11:00 Discharge Diagnosis 1. Right chest wall cellulitis at the insertion site of Port-A-Cath. Status post removal of Port-A-Cath. 2. Carcinoma the left breast. 3. Essential hypertension. 4. Asthma. 5. Hypothyroidism. 6. Allergic rhinitis. 7. Obesity. 8. Macrocytic anemia. Patient Condition: Stable Hospital Course Discharge was canceled on 02/24/2017 due to nonclinical reasons. Patient was discharged on 02/25/2017 in stable condition. Please review detailed discharge summary with discharge instructions that was dictated by nurse practitioner Gregg Grant on 02/24/2017. On day of discharge, patient condition remained stable and she verbalized discharge instructions. Case discussed with Dr. Golden. Home Meds Reported Medications Docusate Sodium* (Colace*) 100 Mg Capsule, 50 MG PO BID, #60 CAP 01/02/17 Montelukast Sodium* (Singulair*) 10 Mg Tablet, 10 MG PO QHS, #30 TAB 01/02/17 Cetirizine Hcl* (Zyrtec*) 10 Mg Capsule, 10 MG PO DAILY, TAB 01/02/17 Albuterol Sulfate* (Proair HFA*) 8.5 Gm Hfa.aer.ad, 2 PUFF INH Q4H Y for WHEEZING AND SOB, #1 INHALER 01/02/17 Acyclovir* (Acyclovir*) 800 Mg Tablet, 800 MG PO DAILY, TAB 01/02/17 Levothyroxine Sodium* (Synthroid*) 150 Mcg Tablet, 150 MCG PO BEFORE BREAKFAST, #30 TAB 01/02/17 Fluticasone Propionate* (Fluticasone Propionate* Nasal) 50 Mcg/[place] - 16 Gm [place].susp, 1 SPRAY NASAL DAILY, #1 BOTTLE TO EACH NOSTRIL 01/02/17 Sertraline Hcl* (Sertraline Hcl*) 100 Mg Tablet, 100 MG PO DAILY, #30 TAB 01/02/17 Flunisolide (Aerospan) 8.9 Gm Hfa.aer.ad, 2 PUFFS INH BID, #1 EA 01/02/17 Tramadol Hcl* (Ultram*) 50 Mg Tablet, 50 MG PO DAILY Y for PAIN, TAB 01/02/17 Gabapentin* (Gabapentin*) 300 Mg Capsule, 300 MG PO TID, #90 CAP 01/02/17 Meloxicam* (Mobic*) 15 Mg Tablet, 15 MG PO DAILY, #30 TAB 01/02/17 Bupropion Hcl (Wellbutrin) 75 Mg Tablet, 75 MG PO BID, TAB 01/02/17 Baclofen* (Baclofen*) 10 Mg Tablet, 10 MG PO DAILY, TAB 01/02/17 Primary Care Provider [facility] Pending Labs Microbiology Date/Time Source Procedure Growth Status 02/24/17 16:30 Chest Gram Stain - Final Resulted 02/24/17 16:30 Chest Wound Culture - Preliminary Resulted DOMINIQUE ARCE V. IT OPERATIONS MANAGER Feb 25, 2017 13:36
== END 2017-02-25 11:00 | disposition home or self-care (01) | DRG 315 ==
LOC: E/R 14:35 → MS2 17:24
PROVIDERS: ADMIT Family Medicine; ATTEND Family Medicine
PROC: 0JPT0XZ Removal of Tunneled Vascular Access Device from Trunk Subcutaneous Tissue and Fascia, Open Approach (ICD-10-PCS; principal; 2017-02-18)
PROC: 02HV33Z Insertion of Infusion Device into Superior Vena Cava, Percutaneous Approach (ICD-10-PCS; 2017-02-23)
DX: T80.218A Other infection due to central venous catheter, initial encounter (principal); L03.313 Cellulitis of chest wall; C50.912 Malignant neoplasm of unspecified site of left female breast; Z68.41 Body mass index [BMI] 40.0-44.9, adult; I10 Essential (primary) hypertension; B95.7 Other staphylococcus as the cause of diseases classified elsewhere; E03.9 Hypothyroidism, unspecified; D53.9 Nutritional anemia, unspecified; E66.01 Morbid (severe) obesity due to excess calories; Y84.8 Other medical procedures as the cause of abnormal reaction of the patient, or of later complication, without mention of misadventure at the time of the procedure; J45.909 Unspecified asthma, uncomplicated; G89.29 Other chronic pain; M54.9 Dorsalgia, unspecified; J30.9 Allergic rhinitis, unspecified; Z87.440 Personal history of urinary (tract) infections; Z79.899 Other long term (current) drug therapy; Z88.2 Allergy status to sulfonamides
CPT/HCPCS: 36415; 36569; 71010; 76937; 80048; 80053; 80202; 83605; 83735; 85025; 85610; 85730; 87040; 87070; 93005; 93970; 96374; 96375; J0692; J0696; J1170; J1650; J2405; J2765; J3370; J7030; J7050; Q9967

== ENCOUNTER 2017-02-27 15:44 | Outpatient (CLI) | payer BC ==
[~2017-02-27] VITALS: Ht 170.2 cm; Wt 116.4 kg
[2017-02-27 15:40] VITALS: BP 145/80; PULSE 60; RESP 18; Ht 170.2 cm; Wt 116.4 kg
--- NOTE | 2017-02-27 16:33 | PN ---
Date/Time of Note Date/Time of Note DATE: 02/27/17 TIME: 16:29 Outpatient Progress Note Chief Complaint Sepsis/left breast CA/asthma/chronic UTI/back pain/hypothyroidism HPI Sepsis/patient was recently admitted with the cellulitis and infection of the Port-A-Cath, patient was treated with antibiotic, patient afebrile at present, cellulitis has improved significantly, Left breast CA/patient has left breast CA, patient is getting chemotherapy, Chronic UTI/patient has history of chronic UTI, no frequency urgency, no blood in the urine, Back pain/patient has history of back pain, at present patient feel comfortable , no loss of bladder or bowel control, Hypothyroidism/patient has a history of hypothyroidism, patient on medication, no side effect of medication, Review of Systems Const: No Fever, no chills, no Wt. loss, no Fatigue, normal appetite, no diaphoresis. Eyes: No pain, no discharge, no redness, no visual change, no foreign body. ENT: No pain, no bleeding, no congestion, no sore throat, no dysphagia, no discharge or rhinitis. Lymph: No adenopathy, no tender nodes, no lymphedema. Resp: No SOB, no cough, no sputum, no wheezing, no chest pain. CV: No chest pain, no palpitaions, no ABERNATHY, no PND, no edema. GI: Normal appetite, no pain, no nausea, no vomiting, no diarrhea, no blood, no constipation. : No frequency, no urgency, no dysuria, no hematuria, no flank pain, no discharge, no bleeding. Musc: No bone/joint pain, no back pain, no neck pain, no knee pain, no restricted ROM. Skin: No rash, no skin lesions, right side chest wall has Port-A-Cath, cellulitis improved, minimal redness, no bleeding or discharge, wound open, no erythema, no laceration, no bruising, no pruritus. Neuro: No MATSON, no dizziness, no syncope, no seizure, no focal-weakness. Endo: No polyuria, no polydypsia, no dry-skin, no temp-intolerance. Psych: No hallucinations, no depression, no anxiety, no suicidal ideation. Ext: No edema, no pain, no ulcer, no weakness. Physical Exam Vital Signs Date Time Temp Pulse Resp B/P Pulse Ox O2 Delivery O2 Flow Rate FiO2 02/27/17 15:40 98.4 60 18 145/80 97 Room Air General Appearance: A 51 year-old female who appears well-developed, well- nourished, in no acute distress. HEENT: Head normocephalic, atraumatic. Pupils equal, round, reactive to light and accommodate. Sclerae are no jaundice. Nasal turbinates pink without erythema or nasal discharge. Mucous membranes pink and moist without lesions. Oropharynx clear without any exudate or discharge. NECK: Supple. Trachea midline, No thyromegaly, No cervical lymphadenopathy, No mass, No carotid bruits, No JVD, Carotid pulses 2+ bilaterally. PULMONARY: Clear to auscultaion bilaterally, No retractions, Chest expansion symmetric bilaterally, no rales, no ronchi, no dulness on percussion. CARDIAC: Normal SI and S2, Regular rate and rythm, no murmur, gallop, or rub. GASTROINTESTINAL: Abdomen is soft, non-tender, Non Rigid, No distention, Positive bowel sounds x4 quadrants, Liver normal. SKIN: Warm, dry, no rash, no bruise, no echmosis. Port-A-Cath opening clean, no bleeding discharge or redness, minimal redness just above that, which is also much improved, EXTREMITIES: Bilateral lower extremities normal, no edema, no phlabitus, pulse palpable, no contracture. MUSCULOSKELETAL: Spine Normal, Non-tender, Normal range of motion, No swelling, no deformity, no clubbing, or cyanosis, the patient has no edema to bilateral lower extremities, dorsalis pedis pulses palpable bilaterally. NEUROLOGIC: The patient is awake, alert, oriented, responding to yes/no questions appropriately, moving all extremities, cranial nerve intact, normal strenght, normal power, normal coordination, normal gait. Allergies Coded Allergies: Sulfa (Sulfonamide Antibiotics) (Unverified Allergy, Unknown, 01/02/17) PMH Left breast CA/asthma/chronic UTI/back pain/hypothyroidism Social Hx No smoking no drinking, Family Hx Noncontributory Assessment/Plan Impression Cellulitis/sepsis improving Left breast CA Asthma Chronic UTI Back pain Hypothyroidism Plan Patient education done about above diseases, and possible complication, patient on IV antibiotic, will continue that, will get the lab after the finishing the antibiotic, Patient encouraged to follow with the primary care physician, and oncologist, Patient encouraged to call if there is any fever or any sign or symptom of any infection or sepsis, Patient blood pressure slightly elevated, will monitor closely, Patient has all other medication and supply, Medications Home Meds Reported Medications Docusate Sodium* (Colace*) 100 Mg Capsule, 50 MG PO BID, #60 CAP 01/02/17 Montelukast Sodium* (Singulair*) 10 Mg Tablet, 10 MG PO QHS, #30 TAB 01/02/17 Cetirizine Hcl* (Zyrtec*) 10 Mg Capsule, 10 MG PO DAILY, TAB 01/02/17 Albuterol Sulfate* (Proair HFA*) 8.5 Gm Hfa.aer.ad, 2 PUFF INH Q4H Y for WHEEZING AND SOB, #1 INHALER 01/02/17 Acyclovir* (Acyclovir*) 800 Mg Tablet, 800 MG PO DAILY, TAB 01/02/17 Levothyroxine Sodium* (Synthroid*) 150 Mcg Tablet, 150 MCG PO BEFORE BREAKFAST, #30 TAB 01/02/17 Fluticasone Propionate* (Fluticasone Propionate* Nasal) 50 Mcg/[place] - 16 Gm [place].susp, 1 SPRAY NASAL DAILY, #1 BOTTLE TO EACH NOSTRIL 01/02/17 Sertraline Hcl* (Sertraline Hcl*) 100 Mg Tablet, 100 MG PO DAILY, #30 TAB 01/02/17 Flunisolide (Aerospan) 8.9 Gm Hfa.aer.ad, 2 PUFFS INH BID, #1 EA 01/02/17 Tramadol Hcl* (Ultram*) 50 Mg Tablet, 50 MG PO DAILY Y for PAIN, TAB 01/02/17 Gabapentin* (Gabapentin*) 300 Mg Capsule, 300 MG PO TID, #90 CAP 01/02/17 Meloxicam* (Mobic*) 15 Mg Tablet, 15 MG PO DAILY, #30 TAB 01/02/17 Bupropion Hcl (Wellbutrin) 75 Mg Tablet, 75 MG PO BID, TAB 01/02/17 Baclofen* (Baclofen*) 10 Mg Tablet, 10 MG PO DAILY, TAB 01/02/17 DEBORAH VELAZQUEZ MD Feb 27, 2017 16:33
== END 2017-02-27 17:00 | disposition home or self-care (01) ==
LOC: DCC 15:44
PROVIDERS: ATTEND Internal Medicine
DX: C50.912 Malignant neoplasm of unspecified site of left female breast (principal); J45.909 Unspecified asthma, uncomplicated; N39.0 Urinary tract infection, site not specified; E03.9 Hypothyroidism, unspecified; M54.9 Dorsalgia, unspecified; L03.313 Cellulitis of chest wall

== ENCOUNTER → 2017-03-13 | Outpatient (CLI) | payer BC ==
[~2017-03-13] VITALS: Ht 170.2 cm; Wt 113.2 kg
[2017-03-13 14:26] VITALS: BP 169/78; PULSE 82; RESP 18; Ht 170.2 cm; Wt 113.2 kg
--- NOTE | 2017-03-13 15:58 | PN ---
Date/Time of Note Date/Time of Note DATE: 03/13/17 TIME: 15:53 Outpatient Progress Note Chief Complaint Hypertension/CA breast/asthma/back pain/hypothyroidism HPI Hypertension/patient does not have any headache or dizziness, no lightheadedness or chest pain, patient stated her blood pressure is normally normal but due to the traffic and aggravation her blood pressure is elevated, before she left the house her blood pressure was okay, CA breast patient has CA left breast, patient is going to start chemotherapy next week, no pain or discharge, Patient has a right sided chest wall Port-A-Cath, which was infected is remote, patient has a PICC line on the left arm, Asthma/no cough expectoration, no fever chill, Back pain/patient has generalized lower lumbosacral area discomfort, patient has pain medication, Hypothyroidism/no puffiness of eyes, no constipation, patient moderately obese, Review of Systems Const: No Fever, no chills, no Wt. loss, no Fatigue, normal appetite, no diaphoresis. Eyes: No pain, no discharge, no redness, no visual change, no foreign body. ENT: No pain, no bleeding, no congestion, no sore throat, no dysphagia, no discharge or rhinitis. Lymph: No adenopathy, no tender nodes, no lymphedema. Resp: No SOB, no cough, no sputum, no wheezing, no chest pain. CV: No chest pain, no palpitaions, no ABERNATHY, no PND, no edema. GI: Normal appetite, no pain, no nausea, no vomiting, no diarrhea, no blood, no constipation. : No frequency, no urgency, no dysuria, no hematuria, no flank pain, no discharge, no bleeding. Musc: No bone/joint pain, no back pain, no neck pain, no knee pain, no restricted ROM. Skin: No rash, no skin lesions, left side PICC line site clean, right side chest wall Port-A-Cath removed, no erythema, no laceration, no bruising, no pruritus. Neuro: No MATSON, no dizziness, no syncope, no seizure, no focal-weakness. Endo: No polyuria, no polydypsia, no dry-skin, no temp-intolerance. Psych: No hallucinations, no depression, no anxiety, no suicidal ideation. Ext: No edema, no pain, no ulcer, no weakness. Physical Exam Vital Signs Date Time Temp Pulse Resp B/P Pulse Ox O2 Delivery O2 Flow Rate FiO2 03/13/17 14:26 98.2 82 18 169/78 95 Room Air General Appearance: A 51 year-old female who appears well-developed, well- nourished, in no acute distress. HEENT: Head normocephalic, atraumatic. Pupils equal, round, reactive to light and accommodate. Sclerae are no jaundice. Nasal turbinates pink without erythema or nasal discharge. Mucous membranes pink and moist without lesions. Oropharynx clear without any exudate or discharge. NECK: Supple. Trachea midline, No thyromegaly, No cervical lymphadenopathy, No mass, No carotid bruits, No JVD, Carotid pulses 2+ bilaterally. PULMONARY: Clear to auscultaion bilaterally, No retractions, Chest expansion symmetric bilaterally, no rales, no ronchi, no dulness on percussion. CARDIAC: Normal SI and S2, Regular rate and rythm, no murmur, gallop, or rub. GASTROINTESTINAL: Abdomen is soft, non-tender, Non Rigid, No distention, Positive bowel sounds x4 quadrants, Liver normal. SKIN: Warm, dry, no rash, no bruise, no echmosis. Port-A-Cath removed, has slight necrotic debris, which is removed, EXTREMITIES: Bilateral lower extremities normal, no edema, no phlabitus, pulse palpable, no contracture. MUSCULOSKELETAL: Spine Normal, Non-tender, Normal range of motion, No swelling, no deformity, no clubbing, or cyanosis, the patient has no edema to bilateral lower extremities, dorsalis pedis pulses palpable bilaterally. NEUROLOGIC: The patient is awake, alert, oriented, responding to yes/no questions appropriately, moving all extremities, cranial nerve intact, normal strenght, normal power, normal coordination, normal gait. Allergies Coded Allergies: Sulfa (Sulfonamide Antibiotics) (Unverified Allergy, Unknown, 01/02/17) PMH No change Social Hx No change Family Hx No change Assessment/Plan Impression Hypertension/CA breast/asthma/back pain/hypothyroidism Plan Patient blood pressure elevated, patient advised the patient blood pressure remains elevated to let us know, and we will adjust the medication, risk of not adjusting the medication To the patient, leading to CVA, [place], renal failure, etc., Patient is going to get a chemotherapy from next week, Patient does not have any problem with asthma at present, patient has enough medication for asthma pain medication and hypothyroidism, Patient encouraged to follow with the primary care physician, Patient's a Port-A-Cath which has slight necrotic tissue is removed, and wounds look clean now, Medications Home Meds Reported Medications Montelukast Sodium* (Singulair*) 10 Mg Tablet, 10 MG PO QHS, #30 TAB 01/02/17 Cetirizine Hcl* (Zyrtec*) 10 Mg Capsule, 10 MG PO DAILY, TAB 01/02/17 Albuterol Sulfate* (Proair HFA*) 8.5 Gm Hfa.aer.ad, 2 PUFF INH Q4H Y for WHEEZING AND SOB, #1 INHALER 01/02/17 Acyclovir* (Acyclovir*) 800 Mg Tablet, 800 MG PO DAILY, TAB 01/02/17 Levothyroxine Sodium* (Synthroid*) 150 Mcg Tablet, 150 MCG PO BEFORE BREAKFAST, #30 TAB 01/02/17 Fluticasone Propionate* (Fluticasone Propionate* Nasal) 50 Mcg/[place] - 16 Gm [place].susp, 1 SPRAY NASAL DAILY, #1 BOTTLE TO EACH NOSTRIL 01/02/17 Sertraline Hcl* (Sertraline Hcl*) 100 Mg Tablet, 100 MG PO DAILY, #30 TAB 01/02/17 Flunisolide (Aerospan) 8.9 Gm Hfa.aer.ad, 2 PUFFS INH BID, #1 EA 01/02/17 Tramadol Hcl* (Ultram*) 50 Mg Tablet, 50 MG PO DAILY Y for PAIN, TAB 01/02/17 Gabapentin* (Gabapentin*) 300 Mg Capsule, 300 MG PO TID, #90 CAP 01/02/17 Meloxicam* (Mobic*) 15 Mg Tablet, 15 MG PO DAILY, #30 TAB 01/02/17 Bupropion Hcl (Wellbutrin) 75 Mg Tablet, 75 MG PO BID, TAB 01/02/17 Baclofen* (Baclofen*) 10 Mg Tablet, 10 MG PO DAILY, TAB 01/02/17 Discontinued Reported Medications Docusate Sodium* (Colace*) 100 Mg Capsule, 50 MG PO BID, #60 CAP 01/02/17 DEBORAH VELAZQUEZ MD Mar 13, 2017 15:58
== END | disposition home or self-care (01) ==
LOC: DCC 14:20
PROVIDERS: ATTEND Internal Medicine
DX: C50.912 Malignant neoplasm of unspecified site of left female breast (principal); I10 Essential (primary) hypertension; M54.9 Dorsalgia, unspecified; E03.9 Hypothyroidism, unspecified; J45.909 Unspecified asthma, uncomplicated

== ENCOUNTER 2017-08-10 06:59 | Day surgery (SDC) | payer BC ==
[2017-08-10] VITALS (26 sets, daily range): BP systolic 104–141; BP diastolic 53–105; PULSE 52–88; RESP 12–24; Ht 170.2 cm; Wt 111.8 kg
[~2017-08-10] VITALS: Ht 170.2 cm; Wt 111.8 kg
[~2017-08-10 06:59] MED LIST changes: -DOCU-144 PO; +LEVO150T87 PO; -MELO-110 PO; +MELO-210 PO; -SYN15 PO
[2017-08-10] MEDS ORDERED: LORA10CA PO (07:56)
[2017-08-10] MEDS ORDERED: AMLO1CAP3 PO (07:57)
[2017-08-10] MEDS ORDERED: APIX5TAB PO (07:58)
[2017-08-10] MEDS ORDERED: NITR0.4T32 SL (07:59)
[2017-08-10] MEDS ORDERED: DOCU-144 PO (08:00)
[2017-08-10 08:02] LABS: BASOPHILS % 0.5 % (0.0-2.0); EOSINOPHILS # 0.1 10^3/ul (0.0-0.5); EOSINOPHILS % 1.6 % (0.0-7.0); HEMATOCRIT 32.4 % (37.0-47.0); LYMPHOCYTES # 2.1 10^3/ul (0.8-2.9); LYMPHOCYTES % 38.5 % (15.0-51.0); MEAN CORPUSCULAR HEMOGLOBIN 33.5 pg (29.0-33.0); MEAN CORPUSCULAR VOLUME 98.8 fl (82.0-101.0); MEAN PLATELET VOLUME 11.1 fl (7.4-10.4); MONOCYTE # 0.6 10^3/ul (0.3-0.9); NEUTROPHIL # 2.7 10^3/ul (1.6-7.5); NEUTROPHILS % 49.2 % (39.0-77.0); PLATELET COUNT 210 10^3/UL (140-415); RED BLOOD COUNT 3.28 10^6/ul (4.20-5.40); WHITE BLOOD COUNT 5.5 10^3/ul (4.8-10.8)
--- NOTE | 2017-08-10 08:02 | RADRPT ---
PROCEDURE: XR Chest. 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 COMPARISON: DR PRINCE CHEST 02/23/2017; DR PRINCE CHEST 02/18/2017 FINDINGS: Elevated right hemidiaphragm is again noted. The cardiomediastinal silhouette is normal. The aorta is normal. No focal consolidation, pleural eff usion or pneumothorax is seen. The osseous structures are intact. IMPRESSION: No radiographic evidence of acute cardiopulmonary disease. Physician Acacia Date Time Electronically viewed and signed by Physician Acacia on 08/10/2017 08:02 CS/
[2017-08-10 08:23] LABS: CHOL/HDL RATIO 3.2 RATIO
[2017-08-10 08:38] LABS: CREATININE 0.98 mg/dl (0.44-1.00); POTASSIUM 3.7 mmol/L (3.5-5.1)
[2017-08-10 08:39] LABS: INR 0.93; PROTIME 12.6 Sec (11.9-14.9)
[2017-08-10 08:40] LABS: PARTIAL THROMBOPLASTIN TIME 29.1 Sec (25.0-35.0)
[2017-08-10] MEDS ORDERED: LIDOCAINE 1% (MDV) 20 ML INJ ONE (08:53)
[2017-08-10] MEDS ORDERED: IODIXANOL LOCM 100 ML BTL ONE (08:53)
[2017-08-10] MEDS ORDERED: MIDAZOLAM 1 MG/ML 2 ML INJ ONE (08:53)
[2017-08-10] MEDS ORDERED: VERAPAMIL 5 MG INJ ONE (08:54)
[2017-08-10] MEDS ORDERED: NITROGLYCERIN (IC) 100 MCG/ML INJ ONE (08:54)
[2017-08-10] MEDS ORDERED: FENTAnyl 50 MCG/ML VIAL ONE (08:54)
[2017-08-10] MEDS ORDERED: SOD CHLORIDE 0.45% 1,000 ML IV ONE (09:30)
[2017-08-10] MEDS ORDERED: DIPHENHYDRAMINE 50 MG CAP PO ONE (09:30)
[2017-08-10] MEDS ORDERED: FAMOTIDINE 20 MG TAB PO ONE (09:30)
[2017-08-10] MEDS ORDERED: DIAZEPAM 5 MG TAB PO ONE (09:30)
[2017-08-10] MEDS ORDERED: HEPARIN 1000 UNITS/ML 10 ML INJ ONE (09:56)
[2017-08-10] MEDS ORDERED: SOD CHLORIDE 0.9% 1,000 ML IV SCH (10:15)
--- NOTE | 2017-08-10 10:19 | SIPON ---
Date/Time of Note Date/Time of Note DATE: 08/10/17 TIME: 10:18 Operative Report Preoperative Diagnosis 1.Abnl mpi 2.Pre-op Postoperative Diagnosis 1.Non-obstructive cad Operation/Procedure Performed 1.[facility] Surgeon see signature line certified teacher assistant Abundio Anesthesia: moderate sedation Estimated blood loss: minimal Transfusion Required none Specimen NA Grafts/Implants none Complications none THOMAS MATAMOROS Aug 10, 2017 10:19
[2017-08-10] MEDS ORDERED: ACETAMINOPHEN 325 MG TAB PO PRN (10:30)
[2017-08-10] MEDS ORDERED: morphine 2 MG INJ IV PRN (10:30)
--- NOTE | 2017-08-10 10:38 | RADRPT ---
Vent Rate: 52 bpm RR Interval: 0 msec RI Interval: 150 msec QRS Duration: 84 msec QT Interval: 484 msec QTC Interval: 450 msec P-R-T [place]rum: 51 - 49 - 33 degrees Sinus bradycardia Nonspecific T wave abnormality Abnormal ECG Electronically Signed By: Mega Oneill [id number]
--- NOTE | 2017-08-10 14:48 | CARRPT ---
DATE OF PROCEDURE: 08/10/2017 TYPE OF PROCEDURE: 1. Left heart catheterization. 2. Coronary angiography. 3. Measurement of left ventricular end diastolic pressure. 4. Moderate conscious sedation. ATTENDING PHYSICIAN: Thomas Tran MD REFERRING PHYSICIAN: Dr. Karli Mcgovern. INDICATION: Positive stress test findings in a preoperative patient. TYPE OF ANESTHESIA: Constant local. BRIEF HISTORY: Ms. Gray is a 52-year-old female with history of hypertension who initially presen ezequiel with a preoperative state and underwent a cardiac stress test showing positive ischemia. Given these findings, the patient was referred for and presents today to undergo left heart catheterizatio n to assess for the possibility of significant obstructive coronary artery disease lending to positi ve stress test findings. PROCEDURE: After informed consent was obtained, the patient was brought to [facility] cardiac catheterization lab where her right radial artery was prepped and draped in the usual s terile fashion. Lidocaine 2% was injected in the right radial artery in order to achieve adequate a nesthesia. With modified Seldinger technique, the radial artery was cannulated and a 6-Thai arter ial sheath was placed. A 6-Thai JL3.5 catheter was used to cannulate the left main coronary ostiu m. With contrast injection, multiple views of the left coronary system were obtained. JL3.5 ____ J R4 was used to cannulate the right coronary arterial ostium. With contrast injection, multiple view s of the right coronary arterial system were obtained. ____ guidewire and a JR4 was used to cannula te the right coronary arterial ostium. With contrast injection, multiple views of the right coronar y arterial system were obtained. JR4 was used across the aortic valve measured LVEDP, pulled back a cross the aortic valve to assess for significant gradient, which there was not and removed. Subsequ ently, at this time, the patient's radial sheath was removed. TR band was applied. This completed the procedure. There were no noted complications. FINDINGS: Coronary angiography: Left main short 4.5 mm, no significant stenoses. LAD proximally is a 3.5 mm vessel and has no significant focal stenoses throughout its entirety. It gives off a proximal branc shalonda diagonal 2.5 mm vessel with an ostial 20-30% stenosis. The circumflex proximally is a 3 mm ves marga with an ostial 20% stenosis. Remainder of the circumflex is free of significant focal stenoses, has a distal branching obtuse marginal, 3 mm, no significant focal stenoses. ____ AV groove is stephen e of significant focal stenoses. The patient's right coronary artery proximally is a 3.5 mm vessel and has no significant focal stenoses throughout its entirety. It is a dominant vessel and therefor e gives off a 2 mm PDA and a 2 mm posterolateral branch each with no significant focal stenoses. Measurement of left ventricular end diastolic pressure of 10 to 11, no significant aortic stenosis b y gradient. TOTAL FLUOROSCOPY TIME: 2.3 minutes. TOTAL CONTRAST: 73 mL. IMPRESSION: 1. Essentially normal coronary arteries with very mild nonobstructive coronary artery disease. 2. Normal left ventricular end-diastolic pressure. 3. No significant aortic stenosis by gradient. RECOMMENDATIONS: In light of procedure and findings at this time would: 1. Maximize medical management. 2. Aggressive risk factor reduction. 3. The patient is without cardiac contraindications to proceeding to surgical procedure at this marilee e. Dictated By: THOMAS DINERO/ALVAREZ Conf#: [id number] DID#: [id number] CC: KARLI MCGOVERN MD;*EndCC*
== END 2017-08-10 16:11 | disposition home or self-care (01) ==
LOC: SDS 06:59
PROVIDERS: ATTEND Internal Medicine
DX: R94.39 Abnormal result of other cardiovascular function study (principal); I25.10 Atherosclerotic heart disease of native coronary artery without angina pectoris
CPT/HCPCS: 71010; 80048; 80061; 85025; 85610; 85730; 93005; 93458; C1887; J1644; J2250; J3010; Q9967; Z7610

== ENCOUNTER 2017-09-07 16:28 | Observation (INO) | END 2017-09-08 17:20 | disposition home or self-care (01) ==